=== PATIENT | female | born 1935 | race Two or more races ===

== ENCOUNTER 2016-07-15 00:01 | Outpatient (RCR) ==
[2015-08-15 14:04] VITALS: BMI 37.6
[2016-07-20 11:56] VITALS: BP 142/56
== END 2016-07-20 15:00 | disposition home or self-care (01) ==
LOC: CAR.REHAB 00:01
PROVIDERS: ATTEND Internal Medicine
DX: I25.10 Atherosclerotic heart disease of native coronary artery without angina pectoris (principal); Z95.5 Presence of coronary angioplasty implant and graft
CPT/HCPCS: 93798

== ENCOUNTER 2018-08-25 10:58 | Outpatient (CLI) | payer OTHER ==
[2015-08-15 14:04] VITALS: BMI 37.6
--- NOTE | 2018-08-25 13:41 | DI ---
EXAM: CHEST FRONTAL AND LATERAL VIEWS HISTORY: Chest pain. COMPARISON: None FINDINGS: Mildly prominent heart size. Moderate atherosclerosis. Sternotomy wires are present. No acute infiltrates are seen. No vascular congestion. There is no consolidation, visible pleural flu id or pneumothorax. Bones reveal no acute fracture. IMPRESSION: Atherosclerotic disease. Prominent heart size. No acute cardiopulmonary process.
== END 2018-08-25 10:59 | disposition home or self-care (01) ==
LOC: RAD 10:58
PROVIDERS: ATTEND Family Medicine
DX: R07.9 Chest pain, unspecified (principal)

== ENCOUNTER 2018-09-30 10:00 | Outpatient (RCR) ==
[2015-08-15 14:04] VITALS: BMI 37.6
--- NOTE | 2018-09-17 15:28 | RS.OPPTEV2 ---
Date of Note: 09/16/18 Visit #: 1 Number of visits approved by Insurance: NA Date of Evaluation: 09/16/18 Payer Source: MEDICARE Surgery Performed?: No Treatment Diagnosis: Bilateral hand pain, impaired sensation History of Condition/Mechanism of Injury:: Mrs. Fofana reports no injury. States her symptoms started approximately 3 months ago. Prior Level of Function.....Patient was independent with: ADL's, Self Care, Caregiving, Ambulation/Mobility, Community Integration/Access Functional Limitations: ADL's, Pushing, Pulling, Lifting, Carrying Current Subjective/complaints:: Patient reports mostly right hand symptoms. States symptoms in left hand are very mild. She had a Nerve Conduction test that showed Carpal Tunnel Syndrome in both wrists. Surgery was suggested. She reports that she is not going to have surgery. She has a basic wrist splint that she wears sometimes at night and some during the day. Decribes pain in the hand and sometimes up to the forearm. States she has a lot of pain in the left thumb. She denies neck or shoulder pain. She reports tingling into the entire hand. She feels that her right hand may be slightly swollen. Treatment Side (optional): Bilateral Medical History Medical History: Hypertension, Arthritis Surgical History Comments:: Heart surgery Hx Home Medications: Patient does not have medication list with her. Patient's Goals: Her goal is to get relief of symptoms in her hands. Pain Assessment - Pain Description Pain Location: right hand, thumb Pain Description: Radiating, Aching Current Pain Intensity: 2/10 Worst Pain Intensity: 5/10 Functional Outcome Measure UE Functional Index: 70 (70/80=12.5% impairment) - G Codes & Severity Modifier G Codes & Modifier: NA Source of G Code score: NA Observation - Observation Inspection: Bilateral hands demonstrate no significant swelling. Right hand does appear to be very slightly swollen compared to the left hand. No thenar or hypothenar eminance atrophy noted. Posture: Forward Head, Rounded Shoulders Handedness: Right - Left Wrist/Hand ROM Comments: Right active wrist extension 70 degrees, flexion 50 degrees. Left wrist extension 85 degrees, and flexion 65 degrees. Demonstrates ability to perform full opposition of the fingers, but reports the right hand and fingers feel much tighter. Bilateral elbow and shoulder AROM is WFL's without pain. - Left Wrist Strength Left Wrist Extension: 4+ Good + Left Wrist Flexion: 4+ Good + Left Forearm Pronation: 4+ Good + Left Forearm Supination: 4+ Good + Comments: Left elbow and shoulder 4+/5. - Right Wrist Strength Right Wrist Extension: 4 Good Right Wrist Flexion: 4 Good Right Forearm Pronation: 4+ Good + Right Forearm Supination: 4 Good Comments: Right elbow and shoulder 4 to 4+/5. - Sas Sql Developer Strength Left Sas Sql Developer Strength: 36 (lbs.) Right Sas Sql Developer Strength: 17 (lbs.) - Special Tests Tinel Test: Negative Left, Positive Right Palpation Comments:: Pt reports significant tenderness with palpation of first rib on the right. Reports no tenderness with palpation on the left first rib. Sensation - Sensation Comments: Reports impaired sensation in the right hand. She is able to detect light touch and deep pressure. With testing sensation, patient reports the index finger and thumb feel hypersensitive along the higuera aspect. Additional Comments: Additional Comments: Patient unable Phalen's test effectively due to limited right wrist flexion. Pincer Grasp: right 6 lbs, left 12 lbs. Interventions - Exercise/Activities/Manual Therapy Exercises/Activities: Mrs. Fofana was instructed in the Prayer stretch ( bilateral wrist extension) and single wrist extension stretch with the elbow extended. We discussed her diagnosis and and she was advised to wear the wrist splint as much as she could to allow for rest and healing. Also discussed the use of ice to decrease pain and elevating the right UE to help with any swelling. Total minutes of Exercise: X 12 mins Manual Therapy: NA HOME EXERCISE PROGRAM: Prayer stretch (wrist extension ) and single wrist extension w/ elbow extension. - Charges Timed Code Treatment Minutes: 12 mins Total Treatment Time: 42 mins Procedures billed for this date of service:: EVAL Medium EVALUATION COMPLEXITY LEVEL EVALUATION COMPLEXITY LEVEL: HISTORY: Medium (Hx heart surgery, Arthritis, HTN) , EXAM OF BODY SYSTEMS: Medium (Right UE AROM), CLINICAL PRESENTATION: Medium, CLINICAL DECISION MAKING: Medium Assessment Assessment: Mrs. Fofana presents to therapy with a diagnosis of Bilateral carpal tunnel syndrome. She reports and exhibits more issues with the right hand/wrist. She displays symptoms of tingling and pain, which she reports is in most the hand and fingers. She also demonstrated a "jump sign" when palpating the right first rib, which may be a source of some of her symptoms. We discussed going with the exercises and treatment to address the wrists as the source of her symptoms. But if her symptoms do not improve with a few weeks of therapy focused on CTS, then we may request to focus therapy on the first rib. She demonstrates potential to benefit from skilled therapy intervention to reduce her pain. Patient Education: Education of diagnosis, Body/Joint mechanics, Home Exercise Program, Home Safety, Activity Modification, Education of Plan of Care Rehab Potential: Good Short Term Goals Goal #1: Pt independent and compliant with HEP and recommendations. Goal to be met by: 10/01/18 Goal #2: Right Wrist extension improved to 80 degrees actively. Goal to be met by: 10/01/18 Goal #3: Pt to report reduction of hand symptoms to minimal w/ activity. Goal to be met by: 10/01/18 Goal #4: Right wrist strength 4+/5 throughout. Goal to be met by: 10/01/18 [place] Goals Goal #1: Pt knows HEP and to continue ex's to maintain functional level after D/ C. Goal to be met by: 10/22/18 Goal #2: Bilateral hand symptoms decreased to occassional. Goal to be met by: 10/22/18 Goal #3: Pt able to perform daily activities with minimal hand/wrist pain. Goal to be met by: 10/22/18 Plan - Treatment to be Provided Procedures: Therapeutic Exercises, Therapeutic Activity, Manual Therapy, Patient Education Modalities: Ultrasound/Phonophoresis, Class IV Laser, Cryotherapy - Treatment Plan Frequency: 2-3 X week Duration: 4 weeks Dates of Fire Extinguisher Installer Goals: 10/22/18 Expiration date of current Insurance Approval:: NA - Treatment Code (1) Carpal tunnel syndrome Code(s): G56.00 - CARPAL TUNNEL SYNDROME, UNSPECIFIED UPPER LIMB Qualifiers: Laterality: bilateral Qualified Code(s): G56.03 - Carpal tunnel syndrome, bilateral upper limbs
--- NOTE | 2018-09-22 11:01 | RS.OPPTDN ---
Subjective Date of Note: 09/22/18 Visit #: 2 Number of visits approved by Insurance: na Date of Evaluation: 09/16/18 Payer Source: MEDICARE Treatment Diagnosis: Bilateral hand pain, impaired sensation Current Subjective/complaints:: Patient reports doing her HEP and feels it is helping.We discussed for her to use a wrist support at her computer ,also. Pain Assessment - Pain Description Pain Location: R wrist /thumb Pain Description: Dull, Aching Current Pain Intensity: 5/10 Other Comments regarding Pain:: no pain after stretches today - Treatment Modality: Ultrasound Parameters/Method Applied: 10 mins. @ 1.5 w/cm2,cont. mode to R wrist /thumb Patient Position: Sitting - Heat/Cryotherapy Treatment: Cryotherapy (10 mins. after exercises) Interventions - Exercise/Activities/Manual Therapy Exercises/Activities: 20 mins. total of prayer stretch,then R wrist into extension with elbow extended.Instructed in thumb opposition to each digit, radial /ulnar deviation. Total minutes of Exercise: 20 Manual Therapy: NA Total minutes of Manual Therapy: 0 HOME EXERCISE PROGRAM: Prayer stretch (wrist extension ) and single wrist extension w/ elbow extension. - Charges Timed Code Treatment Minutes: 20 Total Treatment Time: 40 Procedures billed for this date of service:: US,ex ,cp Assessment: Gage reports relief today after US and stretches.She has good return demo of HEP,is attentive and motivated to improve. Patient Education: Education of diagnosis, Body/Joint mechanics, Home Exercise Program, Home Safety, Activity Modification, Education of Plan of Care Patient demonstrates compliance with HEP?: Yes Short Term Goals Goal #1: Pt independent and compliant with HEP and recommendations. Goal to be met by: 10/01/18 Progress towards Goal:: Progressing Goal #2: Right Wrist extension improved to 80 degrees actively. Goal to be met by: 10/01/18 Progress towards Goal:: Progressing Goal #3: Pt to report reduction of hand symptoms to minimal w/ activity. Goal to be met by: 10/01/18 Progress towards Goal:: Progressing Goal #4: Right wrist strength 4+/5 throughout. Goal to be met by: 10/01/18 Flexible Machining System Machinist Goals Goal #1: Pt knows HEP and to continue ex's to maintain functional level after D/ C. Goal to be met by: 10/22/18 Progress towards goal: Progressing Goal #2: Bilateral hand symptoms decreased to occassional. Goal to be met by: 10/22/18 Goal #3: Pt able to perform daily activities with minimal hand/wrist pain. Goal to be met by: 10/22/18 Plan Dates of Flexible Machining System Machinist Goals: 10/22/18 Expiration date of current Insurance Approval:: na PLAN: Cont. skilled PT to reduce /eliminate carpal symptoms,resulting in increased R retina subspecialist strength and minimal pain.
--- NOTE | 2018-09-26 10:57 | RS.OPPTDN ---
Subjective Date of Note: 09/26/18 Visit #: 3 Number of visits approved by Insurance: na Date of Evaluation: 09/16/18 Payer Source: MEDICARE Treatment Diagnosis: Bilateral hand pain, impaired sensation Current Subjective/complaints:: Patient reports soreness is more in the fingers today,but the wrist feels better. Pain Assessment - Pain Description Pain Location: R hand Pain Description: Dull, Aching Current Pain Intensity: not rated - Treatment Modality: Ultrasound Parameters/Method Applied: 10 mins. to R hand ,palm and dorsum , @ 1.5 w/cm2 cont. mode. Interventions - Exercise/Activities/Manual Therapy Exercises/Activities: 30 mins. total of prayer stretch,then R wrist into extension with elbow extended.thumb opposition to each digit,radial /ulnar deviation. Total minutes of Exercise: 30 Manual Therapy: NA Total minutes of Manual Therapy: 0 HOME EXERCISE PROGRAM: Prayer stretch (wrist extension ) and single wrist extension w/ elbow extension. - Charges Timed Code Treatment Minutes: 30 Total Treatment Time: 40 Procedures billed for this date of service:: US,ex 2 Assessment: Patient is able to do thumb opposition easier tooday after passive stretches,reports pain relief in the entire R hand after session today.She is very active ,motivated to improve ,compliant to recommendations of therapy staff. Patient Education: Education of diagnosis, Body/Joint mechanics, Home Exercise Program, Home Safety, Activity Modification, Education of Plan of Care Patient demonstrates compliance with HEP?: Yes Short Term Goals Goal #1: Pt independent and compliant with HEP and recommendations. Goal to be met by: 10/01/18 Progress towards Goal:: Met Goal #2: Right Wrist extension improved to 80 degrees actively. Goal to be met by: 10/01/18 Progress towards Goal:: Progressing Goal #3: Pt to report reduction of hand symptoms to minimal w/ activity. Goal to be met by: 10/01/18 Progress towards Goal:: Progressing Goal #4: Right wrist strength 4+/5 throughout. Goal to be met by: 10/01/18 [place] Goals Goal #1: Pt knows HEP and to continue ex's to maintain functional level after D/ C. Goal to be met by: 10/22/18 Progress towards goal: Progressing Goal #2: Bilateral hand symptoms decreased to occassional. Goal to be met by: 10/22/18 Goal #3: Pt able to perform daily activities with minimal hand/wrist pain. Goal to be met by: 10/22/18 Progress towards goal: Progressing Plan Dates of Fdc Goals: 10/22/18 Expiration date of current Insurance Approval:: na PLAN: Cont. PT to reduce /elimate R wrist/hand pain.
--- NOTE | 2018-09-30 10:58 | RS.OPPTDN ---
Subjective Date of Note: 09/30/18 Visit #: 4 Number of visits approved by Insurance: na Date of Evaluation: 09/16/18 Payer Source: MEDICARE Treatment Diagnosis: Bilateral hand pain, impaired sensation Current Subjective/complaints:: Patient pleased with her progress,has no pain or tingling in the R hand ,is doing her stretches. - Treatment Modality: Ultrasound Parameters/Method Applied: 10 mins. @ 1.5 w/cm2 to R hand /wrist area. Patient Position: Sitting Interventions - Exercise/Activities/Manual Therapy Exercises/Activities: 20 mins. total of prayer stretch,then R wrist into extension with elbow extended , thumb opposition to each digit,radial /ulnar deviation. Total minutes of Exercise: 20 Manual Therapy: NA Total minutes of Manual Therapy: 0 HOME EXERCISE PROGRAM: Prayer stretch (wrist extension ) and single wrist extension w/ elbow extension. - Charges Timed Code Treatment Minutes: 30 Total Treatment Time: 30 Procedures billed for this date of service:: US,ex Assessment: Progrssing very well ,no pain or tinglng in the R hand today.She is able to do thumb opposition to each finger today ,has functional process improvement manager without pain.We duscussed the POC ,plan to D/C at next visit if she is still pain free. Patient Education: Body/Joint mechanics, Home Exercise Program, Home Safety, Activity Modification, Education of Plan of Care Patient demonstrates compliance with HEP?: Yes Short Term Goals Goal #1: Pt independent and compliant with HEP and recommendations. Goal to be met by: 10/01/18 Progress towards Goal:: Met Goal #2: Right Wrist extension improved to 80 degrees actively. Goal to be met by: 10/01/18 Progress towards Goal:: Progressing Goal #3: Pt to report reduction of hand symptoms to minimal w/ activity. Goal to be met by: 10/01/18 Progress towards Goal:: Met Goal #4: Right wrist strength 4+/5 throughout. Goal to be met by: 10/01/18 Progress towards Goal:: Met Retirement Goals Goal #1: Pt knows HEP and to continue ex's to maintain functional level after D/ C. Goal to be met by: 10/22/18 Progress towards goal: Met Goal #2: Bilateral hand symptoms decreased to occassional. Goal to be met by: 10/22/18 Progress towards goal: Partially Met Comments: none today Goal #3: Pt able to perform daily activities with minimal hand/wrist pain. Goal to be met by: 10/22/18 Progress towards goal: Met Plan Dates of Classification Counselor Goals: 10/22/18 Expiration date of current Insurance Approval:: na PLAN: Initiate D/C plan due to good progress.
--- NOTE | 2018-10-03 07:59 | RS.CSNOTE ---
PT Case Note Date of Note: 10/03/18 Title of document: Patient status Note: Patient called clinic yesterday ,is doing well,requests to discharge PT do to good progress.Supervising PT notified. Number of visits approved by Insurance: na Expiration date of current Insurance Approval:: na
--- NOTE | 2018-10-08 15:49 | RS.OPPTDC ---
Date of Discharge: 10/08/18 Date of Evaluation: 09/16/18 Number of Visits: 4 Treatment Diagnosis: Bilateral hand pain, impaired sensation Current Complaints/Gains: Patient reports good progress with therapy. She requested D/C with therapy due to doing better. Denies tinling in hands with ADL's. Functional Outcome Measure - G Codes & Severity Modifier G Codes & Modifier: NA Source of G Code score: NA Interventions - Exercise/Activities/Manual Therapy Exercises/Activities: NA Manual Therapy: NA HOME EXERCISE PROGRAM: Prayer stretch (wrist extension ) and single wrist extension w/ elbow extension. - Charges Timed Code Treatment Minutes: NA Total Treatment Time: NA Procedures billed for this date of service:: NA Assessment Assessment: Ms. Fofana reported much improvement in symptoms. She was receptive to advice we gave her to help decrease her symptoms. Short Term Goals Goal #1: Pt independent and compliant with HEP and recommendations. Goal to be met by: 10/01/18 Progress towards Goal:: Met Goal #2: Right Wrist extension improved to 80 degrees actively. Goal to be met by: 10/01/18 Progress towards Goal:: Not Met Goal #3: Pt to report reduction of hand symptoms to minimal w/ activity. Goal to be met by: 10/01/18 Progress towards Goal:: Met Goal #4: Right wrist strength 4+/5 throughout. Goal to be met by: 10/01/18 Progress towards Goal:: Met Group Home Goals Goal #1: Pt knows HEP and to continue ex's to maintain functional level after D/ C. Goal to be met by: 10/22/18 Progress towards goal: Met Goal #2: Bilateral hand symptoms decreased to occassional. Goal to be met by: 10/22/18 Progress towards goal: Met Goal #3: Pt able to perform daily activities with minimal hand/wrist pain. Goal to be met by: 10/22/18 Progress towards goal: Met Plan Reason for Discharge:: Self-Discharge Comments: Patient has HEP to continue on her own.
== END 2018-10-12 23:59 ==
PROVIDERS: ATTEND Specialist
DX: G56.03 Carpal tunnel syndrome, bilateral upper limbs (principal)

== ENCOUNTER 2021-10-31 00:12 | Observation (INO) ==
[2021-10-31] MEDS ORDERED: ZOFRAN 4 MG/2 ML IVP STA (00:15)
[2021-10-31] MEDS ORDERED: SODIUM CHLORIDE 1,000 ML IV STA (00:15)
--- NOTE | 2021-10-31 00:16 | ED.PDOC ---
General ED Provider: Dr. FINA MARTINEZ Chief Complaint: Chest Pain Stated Complaint: Patient started having chest pain while she was eating a salad. The pain is located on the right mid chest with associated nausea and vomiting. Time Seen by Provider: 10/31/21 00:31 Primary Care Provider: ZAKIYA DASLIVA Nursing and Triage Documentation Reviewed and Agree: Yes Does patient meet sepsis criteria?: No System Inflammatory Response Syndrome: Temp 101F or Greater and Temp 96.8F or Lower Sepsis Protocol: For patient's 13 years and over: Temp is 96.8 and below OR 101 and greater Pulse >90 BPM Resp >20/minute Acutely Altered Mental Status Are patient's symptoms suggestive of a new infection, such as: -Pneumonia -Skin, Soft Tissue -Endocarditis -UTI -Bone, Joint Infection -Implantable Device -Acute Abdominal Infection -Wound Infection -Meningitis -Blood Stream Catheter Infection -Unknown Cardiovascular Complaint Exam Chest Pain Complaint/Exam Onset: Sudden Symptoms Are: Still present (but better ) Location: Reports Midsternal and Right anterior Pain Radiates: Reports Back Alleviating: Reports Rest and Nitro Associated Signs and Symptoms: Reports Diaphoresis, Nausea, Vomiting and Short of air Related Surgical History: Reports None AMI/ACS Risk Factors: Reports None TAD Risk Factors: Reports None Pulmonary Embolism Risk Factors: Reports None Prior Care for this Complaint: No Recent Stress Test: No Recent Echo/LV Function: No Subcutaneous Emphysema Present: No Diminshed Breath Sounds: No Reproducible Chest Wall Pain: No Bilateral Pulses Present: No Unequal Pulses Noted: No Chest Picture: 1. chest pain If Risk Factors for AMI/ACS Consider: EKG Differential Diagnoses: Acute IA and ACS Quality Indicators For Acute IA or Cardiac Chest Pain: EKG in 10min. Quality Indicator For Non-Traumatic Chest Pain/Syncope: EKG Performed Review of Systems Review Of Systems Constitutional: Reports No symptoms Eyes: Reports No symptoms Respiratory: Reports No symptoms Cardiac: Reports Chest pain GI: Reports Nausea and Vomiting : Reports No symptoms Musculoskeletal: Reports No symptoms Skin: Reports No symptoms Neurological: Reports Anxiety Endocrine: Reports No symptoms All Other Systems: Reviewed and Negative [facility] Medical History (Updated 10/31/21 @ 00:40 by FINA MARTINEZ MD) Acid reflux Allergies Arthritis Cancer Heart disease Hypertension Family History (Updated 05/14/19 @ 09:42 by RUTH BAL) FATHER No problems noted. Mother Cancer Surgical History (Updated 01/25/20 @ 09:02 by [facility]) History of angioplasty History of cholecystectomy History of heart surgery Tubal ligation status Physical Exam Physical Exam Appearance: Reports Well-appearing Ill-appearing: Severe Pain Distress: Severe Eyes: Reports AMBER, EOMI and Conjunctiva clear ENT: Reports Nose normal Neck: Not Examined Respiratory: Reports Airway patent, Breath sounds clear and Breath sounds equal Cardiovascular: Reports RRR, Pulses normal and No rub GI/: Reports Soft, Nontender and No masses Musculoskeletal: Reports Normal strength Skin: Reports Warm Neurological: Reports Sensation intact Psychiatric: Reports Anxious Interpretation Radiology Interpretation Radiology Interpretation By: Radiologist Radiology Results: Negative Exam Interpreted: Portable CXR Studio Producer Rate: Normal Rhythm: Sinus Ectopy: None EKG Interpretation Time of EKG #1: 00:01 Rate: Normal Rhythm: Sinus Ectopy: None [place]: NL ST Segment: Normal Interpretation: Anterior Infarct age undetermined Re-Evaluation Re-Evaluation Time of Re-Evaluation: 07:52 Status: Improved Vital Signs Stable: Yes Physician Notification Case Discussed Physician Notified: Dr Chawla Time of Notification: 02:50 (accepted for Transfer. ) Comments: Awaited Transportation in the AM and Discuss with family. Physician Notified: Dr Dasilva Time of Notification: 08:30 (Transer to Dr Chawla.) Comments: Patient agreeable to Transfer to Dr. Chawla in [place] Endorsed To/Discussed With: Dr Shepard. Time of Discussion: 07:53 ([facility] does have a bed will admit here until we have a bed. ) Critical Care Note Critical Care Note Total Critical Care Time (mins): 30 Course Course Hematology/Chemistry: 10/31/21 00:15 10/31/21 00:15 Orders, Labs, Meds: Lab Review 10/31/21 10/31/21 10/31/21 00:15 00:15 00:15 WBC 16.10 H RBC 4.03 L Hgb 12.4 Hct 37.9 MCV 94.0 MCH 30.8 MCHC 32.7 RDW Coeff of Peg 13.3 Plt Count 225 Immature Gran % (Auto) 0.4 Neut % (Auto) 91.3 H Lymph % (Auto) 3.8 L [place] % (Auto) 3.6 Eos % (Auto) 0.7 Baso % (Auto) 0.2 Neut # (Auto) 14.7 H Lymph # (Auto) 0.6 [place] # (Auto) 0.6 Eos # (Auto) 0.1 Baso # (Auto) 0.0 Immature Gran # (Auto) 0.1 Sodium 141.0 Potassium 3.25 L Chloride 106.2 Carbon Dioxide 28.5 Anion Gap 9.55 BUN 25.1 H Creatinine 1.00 Estimated GFR (MDRD) 53.00 BUN/Creatinine Ratio 25.10 Glucose 179.5 H Calcium 8.91 Total Bilirubin 0.99 AST 78.8 H ALT 42.8 H Alkaline Phosphatase 131.1 Total Creatine Kinase 90.6 Troponin I < 0.012 Total Protein 7.21 Albumin 3.95 Globulin 3.26 Albumin/Globulin Ratio 1.21 Adenovirus (PCR) Not detected B. pertussis DNA (PCR) Not detected B.parapertussis DNA PCR Not detected C. pneumoniae DNA (PCR) Not detected Coronavirus OC43 (PCR) Not detected Coronavirus HKU1 (PCR) Not detected Coronavirus 229E (PCR) Not detected Coronavirus NL63 (PCR) Not detected Human Metapneumovir PCR Not detected Influenza Type A (PCR) Not detected Influenza B (RT-PCR) Not detected M. pneumoniae (PCR) Not detected Parainfluenza 1 (PCR) Not detected Parainfluenza 2 (PCR) Not detected Parainfluenza 3 (PCR) Not detected Parainfluenza 4 (PCR) Not detected RSV (PCR) Not detected Entero/Rhino (PCR) Not detected SARS-CoV-2 (PCR) Not detected 10/31/21 05:00 WBC RBC Hgb Hct MCV MCH MCHC RDW Coeff of Peg Plt Count Immature Gran % (Auto) Neut % (Auto) Lymph % (Auto) [place] % (Auto) Eos % (Auto) Baso % (Auto) Neut # (Auto) Lymph # (Auto) [place] # (Auto) Eos # (Auto) Baso # (Auto) Immature Gran # (Auto) Sodium Potassium Chloride Carbon Dioxide Anion Gap BUN Creatinine Estimated GFR (MDRD) BUN/Creatinine Ratio Glucose Calcium Total Bilirubin AST ALT Alkaline Phosphatase Total Creatine Kinase Troponin I 0.100 Total Protein Albumin Globulin Albumin/Globulin Ratio Adenovirus (PCR) B. pertussis DNA (PCR) B.parapertussis DNA PCR C. pneumoniae DNA (PCR) Coronavirus OC43 (PCR) Coronavirus HKU1 (PCR) Coronavirus 229E (PCR) Coronavirus NL63 (PCR) Human Metapneumovir PCR Influenza Type A (PCR) Influenza B (RT-PCR) M. pneumoniae (PCR) Parainfluenza 1 (PCR) Parainfluenza 2 (PCR) Parainfluenza 3 (PCR) Parainfluenza 4 (PCR) RSV (PCR) Entero/Rhino (PCR) SARS-CoV-2 (PCR) Orders Category Date Time Status EKG-(ED ONLY) Stat CARDIO 10/31/21 00:14 Completed CBC W/ AUTO DIFF Stat LAB 10/31/21 00:15 Completed COMPREHENSIVE METABOLIC PANEL Stat LAB 10/31/21 00:15 Completed CREATINE KINASE Stat LAB 10/31/21 00:15 Completed RESPIRATORY PANEL 2.1 (PCR) Stat LAB 10/31/21 00:15 Completed TROPONIN I Stat LAB 10/31/21 00:15 Completed TROPONIN I Stat LAB 10/31/21 05:00 Completed Ondansetron HCl/Pf [Zofran 4 mg/2 ml] MEDS 10/31/21 00:15 Discontinued 4 mg IVP ONCE STA Pantoprazole Sodium [Protonix IV] MEDS 10/31/21 00:43 Discontinued 40 mg IVP ONCE ONE Sodium Chloride 0.9% [Sodium Chloride] 1,000 ml MEDS 10/31/21 00:15 Active IV 100 mls/hr CHEST, 1V AP ONLY Stat RADS 10/31/21 00:14 Completed Medications Generic Name Dose Route Start Last Admin Trade Name Freq PRN Reason Stop Dose Admin Sodium Chloride 1,000 mls @ 100 mls/hr 10/31/21 00:15 10/31/21 00:26 Sodium Chloride IV 10/31/21 10:14 100 mls/hr .Q10H STA Administration Discontinued Medications Generic Name Dose Route Start Last Admin Trade Name Freq PRN Reason Stop Dose Admin Ondansetron HCl 4 mg 10/31/21 00:15 10/31/21 00:28 Ondansetron Hcl/Pf 4 Mg/2 Ml Sdv IVP 10/31/21 00:16 4 mg ONCE STA Administration Pantoprazole Sodium 40 mg 10/31/21 00:43 10/31/21 00:48 Pantoprazole Sodium 40 Mg Vial IVP 10/31/21 00:44 40 mg ONCE ONE Administration Vital Signs: Temp Pulse Resp BP Pulse Ox 10/31/21 00:14 97.0 F L 60 16 156/84 H 99 BRAYAN Risk Score Age >/= 65: Yes >/= 3 CAD Risk Factors: Yes Known CAD (Stenosis >/= 50%): Yes ASA Use in Past 7 Days: Yes Severe Angina (>/= 2 episodes in 24 hours): Yes EKG ST Changes >/= 0.5mm: No Postive Cardiac Marker: No BRAYAN Total Score: 5 BRAYAN Risk Score: Risk Score Odds of by 30D 0 0.1 (0.1-0.2) 1 0.3 (0.2-0.3) 2 0.4 (0.3-0.5) 3 0.7 (0.6-0.9) 4 1.2 (1.0-1.5) 5 2.2 (1.9-2.6) 6 3.0 (2.5-3.6) 7 4.8 (3.8-6.1) Discharge Plan Discharge Patient Disposition: PLACED OBSERVATION Discharge Problem: Chest pain Prescriptions: No Action No Reported Medications 0 Qty: 0 0RF ED Provider: FINA MARTINEZ Condition: Good Physician Progress Note: []
[2021-10-31 00:25] LABS: BASOPHILS % (AUTO) 0.2 % (0.0-3.0); EOSINOPHILS # (AUTO) 0.1 K/ul (0.0-0.7); EOSINOPHILS % (AUTO) 0.7 % (0.0-7.0); HEMATOCRIT 37.9 % (37.0-47.0); HEMOGLOBIN 12.4 g/dl (12.0-16.0); IMMATURE GRANULOCYTE # (AUTO) 0.1 (0.0-1.0); IMMATURE GRANULOCYTE % (AUTO) 0.4 % (0.0-5.0); LYMPHOCYTES # (AUTO) 0.6 K/uL (0.60-3.4); LYMPHOCYTES % (AUTO) 3.8 (10.0-50.0); MEAN CORPUSCULAR HEMOGLOBIN 30.8 pg (27.0-31.0); MEAN CORPUSCULAR HGB CONC 32.7 (31.8-35.4); MONOCYTES # (AUTO) 0.6 K/uL (0.4-2.0); MONOCYTES % (AUTO) 3.6 (0-10); NEUTROPHILS # (AUTO) 14.7 K/ul (2.0-6.9); NEUTROPHILS % (AUTO) 91.3 % (42.2-75.2); PLATELET COUNT 225 10^3/uL (140-440); RDW COEFFICIENT OF VARIATION 13.3 % (11.6-14.8); RED BLOOD COUNT 4.03 10^6/ul (4.20-5.40)
[2021-10-31] MEDS ORDERED: PROTONIX IV IVP ONE ×2 (00:43→08:02)
--- NOTE | 2021-10-31 00:43 | DI ---
Exam: Chest one-view History: Chest pain FINDINGS: Normal cardiomediastinal contours. Normal pulmonary vasculature. No infiltrative opaciti es. Prior mediastinotomy. No acute chest wall abnormality. Impression: No acute cardiopulmonary disease
[2021-10-31 00:55] LABS: ALANINE AMINOTRANSFERASE 42.8 U/L (0-35); ALBUMIN 3.95 g/dL (3.5-5.0); ALKALINE PHOSPHATASE 131.1 U/L (53-141); ASPARTATE AMINO TRANSFERASE 78.8 U/L (14-36); BILIRUBIN,TOTAL 0.99 mg/dL (0.2-1.3); BLOOD UREA NITROGEN 25.1 mg/dL (7-17); CALCIUM 8.91 mg/dL (8.4-10.2); CARBON DIOXIDE 28.5 mmol/L (22-30.0); CHLORIDE 106.2 mmol/L (98-107); CREATINE KINASE 90.6 U/L (30-135); GLUCOSE 179.5 mg/dL (74-106); POTASSIUM 3.25 mmol/L (3.5-5.1); TOTAL PROTEIN 7.21 g/dL (6.3-8.2)
[2021-10-31 01:25] LABS: TROPONIN I < 0.012 ng/ml (0.0000-0.120)
[2021-10-31 01:32] LABS: ADENOVIRUS (PCR) NOT DETECTED (NOT DETECT); BORDETELLA PARAPERTUSSIS (PCR) NOT DETECTED (NOT DETECT); BORDETELLA PERTUSSIS (PCR) NOT DETECTED (NOT DETECT); CHLAMYDIA PNEUMONIAE (PCR) NOT DETECTED (NOT DETECT); CORONAVIRUS 229E (PCR) NOT DETECTED (NOT DETECT); CORONAVIRUS HKU1 (PCR) NOT DETECTED (NOT DETECT); CORONAVIRUS NL63 (PCR) NOT DETECTED (NOT DETECT); CORONAVIRUS OC43 (PCR) NOT DETECTED (NOT DETECT); HUMAN METAPNEUMOVIRUS (PCR) NOT DETECTED (NOT DETECT); HUMAN RHINOVIRUS/ENTEROV (PCR) NOT DETECTED (NOT DETECT); INFLUENZA B (PCR) NOT DETECTED (NOT DETECT); MYCOPLASMA PNEUMONIAE (PCR) NOT DETECTED (NOT DETECT); PARAINFLUENZA VIRUS 1 (PCR) NOT DETECTED (NOT DETECT); PARAINFLUENZA VIRUS 2 (PCR) NOT DETECTED (NOT DETECT); PARAINFLUENZA VIRUS 3 (PCR) NOT DETECTED (NOT DETECT); PARAINFLUENZA VIRUS 4 (PCR) NOT DETECTED (NOT DETECT); RESPIRATORY SYNCYTIAL V (PCR) NOT DETECTED (NOT DETECT); SARS_COV_2 (PCR) NOT DETECTED (NOT DETECT)
[2021-10-31] MEDS ORDERED: ZOFRAN 4 MG/2 ML IVP PRN (07:57)
[2021-10-31] MEDS ORDERED: ASPIRIN CHEWABLE PO STA (07:57)
[2021-10-31] MEDS ORDERED: ASPIRIN EC PO SCH (08:30)
[2021-10-31] MEDS ORDERED: LOVENOX SUBCUT SCH (09:00)
--- NOTE | 2021-10-31 09:33 | US ---
EXAM: Right upper quadrant ultrasound HISTORY: Right-sided pain, nausea TECHNIQUE: Dai scale and color Doppler imaging of the right upper quadrant of the abdomen was perfo rmed. FINDINGS: The liver demonstrates normal parenchymal echotexture. There is no intrahepatic biliary d ilatation. No focal lesions are seen within the liver. The gallbladder was not seen on this examina tion. Normal antegrade blood flow was seen in the portal vein. The right kidney measures 10.3 cm in length. There is no hydronephrosis. The renal parenchymal echotexture appears normal. There is a small cyst seen within the superior to mid pole of the right kidney measuring 12 mm maximum. There i s a more complex cyst seen arising from the inferior pole of the right kidney measuring up to 2.3 cm maximum. There is a questionable internal soft tissue nodule. The common bile duct is measuring 4.6 mm diameter. The pancreas was not well seen. The inferior vena cava was not well seen on this exam ination. IMPRESSION: Overall limited evaluation and the gallbladder, pancreas, inferior vena cava were not we ll seen. Nuclear medicine HIDA scan can be obtained for further evaluation if there is a need for ev aluation of the gallbladder. The common bile duct is normal and measures 4.6 mm diameter. There is a complex cyst seen within the inferior pole of the right kidney measuring up to 2.3 cm maxi mum. A 6-month follow-up renal ultrasound should be obtained for further evaluation.
[2021-10-31 13:11] VITALS: BMI 30.9
[2021-10-31 14:15] LABS: CREATINE KINASE 74.8 U/L (30-135)
[2021-10-31 14:54] LABS: TROPONIN I 0.72 ng/ml (0.0000-0.120)
[2021-10-31] MEDS ORDERED: POTASSIUM CHL 10% ORAL SOL PO ONE (15:52)
[2021-10-31 16:03] VITALS: BP 152/72; TEMP 97.6
[2021-10-31] MEDS ORDERED: ATIVAN IVP ONE (16:13)
--- NOTE | 2021-10-31 17:35 | DS ---
PRINCIPAL DIAGNOSIS: 1.NSTEMI, hypertension, history of coronary artery disease DISCUSSION: This is a 86 year old lady with a history of coronary artery disease, presented to emergency room with nausea, vomiting, and chest pain after eating a meal. She was given a nitroglycerin by family with relief of symptoms. She presented to emergency department with EKG without acute findings, troponins are negative. Admitted under Dr. Ross's services for further observation. After observation, her troponin was elevated to 0.7, at this point patient is being transferred to [facility] under the care of Hospitalist Dr. Callaway. PAST MEDICAL HISTORY: MEDICATIONS: [tramadol 50mg q8h, protonix 40mg daily, nitroglycerin sublingual 400 mcg/spray 1 spray PRN, cozaar 100mg daily, lorazepam 1mg TID, lexapro 10 mg daily, clonodine 0.1 qhs, atrovastatin 40mg daily, aspirin 81 mg daily, PAST MEDICAL HISTORY: [DJD, CAD, HTN, hyperlipidemia] ALLERGIES: [Bacitracin, neomycin, penicillins, polymyxin B] PAST SURGICAL HISTORY: [Angioplasty, cholecystectomy] SOCIAL HISTORY: [, infrequent alcohol intake, no tobacco use] FAMILY HISTORY: [cancer- mother]Reviewed and thought not to be pertinent to discussion. REVIEW OF SYSTEMS: No headaches, visual changes, tinnitus, chest pain, shortness of breath, hemoptysis, abdominal pain, blood in the stool, urinary symptoms or seizures. PHYSICAL EXAMINATION: VITAL SIGNS: Temperature [96.0], pulse [], respirations [16] and blood pressure [112/88]. HEENT: Pupils are round. NECK: Supple. CHEST: Clear. CARDIOVASCULAR: Regular rate and rhythm. ABDOMEN: Soft, nontender. EXTREMITIES: Distal extremities without cyanosis or edema. CLINICAL COURSE: [Patient being transfered to [facility] under the care of hospitalist, Nilton Bravo.] ] [facility]
== END 2021-10-31 17:35 | disposition short-term general hospital (02) ==
LOC: ED 00:12 → MEDSURG A 00:12
PROVIDERS: ADMIT Family Medicine; ATTEND Family Medicine
DX: I10 Essential (primary) hypertension; Z51.81 Encounter for therapeutic drug level monitoring; Z79.899 Other long term (current) drug therapy; I21.4 Non-ST elevation (NSTEMI) myocardial infarction; Z20.822 Contact with and (suspected) exposure to COVID-19; I25.10 Atherosclerotic heart disease of native coronary artery without angina pectoris

== ENCOUNTER 2022-10-30 10:16 | Observation (INO) ==
[2022-10-30] MEDS ORDERED: ZOFRAN 4 MG/2 ML IVP STA ×2 (10:52→15:21)
[2022-10-30 11:09] LABS: BASOPHILS % (AUTO) 0.2 % (0.0-3.0); EOSINOPHILS # (AUTO) 0.1 K/ul (0.0-0.7); EOSINOPHILS % (AUTO) 0.7 % (0.0-7.0); HEMATOCRIT 34.6 % (37.0-47.0); HEMOGLOBIN 11.3 g/dl (12.0-16.0); IMMATURE GRANULOCYTE % (AUTO) 0.3 % (0.0-5.0); LYMPHOCYTES # (AUTO) 0.3 K/uL (0.60-3.4); LYMPHOCYTES % (AUTO) 3.3 (10.0-50.0); MEAN CORPUSCULAR HEMOGLOBIN 30.9 pg (27.0-31.0); MEAN CORPUSCULAR HGB CONC 32.7 (31.8-35.4); MEAN CORPUSCULAR VOLUME 94.5 fl (81.0-99.0); MONOCYTES # (AUTO) 0.5 K/uL (0.4-2.0); MONOCYTES % (AUTO) 5.4 (0-10); NEUTROPHILS # (AUTO) 8.7 K/ul (2.0-6.9); NEUTROPHILS % (AUTO) 90.1 % (42.2-75.2); PLATELET COUNT 196 10^3/uL (140-440); RDW COEFFICIENT OF VARIATION 14.5 % (11.6-14.8); RED BLOOD COUNT 3.66 10^6/ul (4.20-5.40); WHITE BLOOD COUNT 9.67 K/ul (4.6-10.2)
--- NOTE | 2022-10-30 11:23 | DI ---
EXAM: CHEST ONE-VIEW HISTORY: Chest pain COMPARISON: AP chest from 10/31/2021 FINDINGS: The heart size is normal. Marginal sutures are in place. The pulmonary vasculature is no rmal. No consolidating infiltrates are detected. No pneumothoraces or pleural effusions. IMPRESSION: 1. No acute cardiopulmonary disease. 2. Prominent heart size and prior sternotomy. .
[2022-10-30 11:27] LABS: ALANINE AMINOTRANSFERASE 100.5 U/L (0-35); ALBUMIN 3.75 g/dL (3.5-5.0); ALKALINE PHOSPHATASE 179.3 U/L (53-141); AMYLASE 90.5 U/L (30-110); ASPARTATE AMINO TRANSFERASE 240.1 U/L (14-36); BILIRUBIN,TOTAL 0.86 mg/dL (0.2-1.3); BLOOD UREA NITROGEN 19.5 mg/dL (7-17); CALCIUM 8.56 mg/dL (8.4-10.2); CARBON DIOXIDE 32.3 mmol/L (22-30.0); CHLORIDE 101.7 mmol/L (98-107); CREATININE 1.01 mg/dL (0.60-1.30); GLUCOSE 134.7 mg/dL (74-106); LIPASE 320.9 U/L (23-300); POTASSIUM 3.29 mmol/L (3.5-5.1); SODIUM 139.5 mmol/L (134.5-145); TOTAL PROTEIN 6.87 g/dL (6.3-8.2)
--- NOTE | 2022-10-30 11:31 | ED.PDOC ---
General ED Provider: Dr. FINA MARTINEZ Chief Complaint: Nausea/Vomiting Stated Complaint: Comes to the ER with diarrhea for few days then Nausea and vomiting this morning. states she ate some sandwiches this morning. After vomiting the she had some mild right upper chest pain now done. Time Seen by Provider: 10/30/22 10:42 Information Source: Patient Primary Care Provider: ZAKIYA DASILVA Nursing and Triage Documentation Reviewed and Agree: Yes Does patient meet sepsis criteria?: No System Inflammatory Response Syndrome: Not Applicable Sepsis Protocol: For patient's 13 years and over: Temp is 96.8 and below OR 101 and greater Pulse >90 BPM Resp >20/minute Acutely Altered Mental Status Are patient's symptoms suggestive of a new infection, such as: -Pneumonia -Skin, Soft Tissue -Endocarditis -UTI -Bone, Joint Infection -Implantable Device -Acute Abdominal Infection -Wound Infection -Meningitis -Blood Stream Catheter Infection -Unknown GI Complaint Exam Vomiting/Diarrhea Complaint/Exam Onset/Duration: today Symptoms Are: Still present Episodes of Vomiting over last 24 Hours: 20 Episodes of Diarrhea Over Last 24 Hours: 5 Initial Severity: Severe Current Severity: Moderate Character of Vomiting: Reports Non-bilious Character of Diarrhea: Reports Watery Aggravating: Reports Food Alleviating: Reports None Associated Signs and Symptoms: Reports Abdominal pain and Cramping Related Surgical History: Reports Cholecystectomy Abdominal Findings: Absent Abdominal distention or Rebound tenderness Differential Diagnoses: Bowel Obstruction, Cholecystitis and Gastritis Review of Systems Review Of Systems Constitutional: Reports No symptoms Cardiac: Reports Chest pain GI: Reports Diarrhea, Nausea and Poor appetite; Denies Abdominal pain or Constipated Musculoskeletal: Denies Back pain Neurological: Reports Anxiety All Other Systems: Reviewed and Negative [facility] Medical History Family History FATHER No problems noted. Mother Cancer Social History Alcohol intake: current Alcohol intake frequency: a few times a month Surgical History Female Reproductive History Menstrual Hx Hysterectomy: No Hx Tubal Ligation: No Physical Exam Physical Exam Appearance: Reports Ill-appearing Ill-appearing: Mild Pain Distress: Mild Eyes: Reports AMBER, EOMI and Conjunctiva clear ENT: Reports Nose normal Neck: Supple Respiratory: Reports Airway patent and Breath sounds clear Cardiovascular: Reports RRR, Pulses normal and No rub GI/: Reports Soft, Nontender and Bowel sounds hyperactive Musculoskeletal: Reports Normal strength, ROM intact and No edema Skin: Reports Warm, Dry and Normal color Neurological: Reports Motor intact, Alert and Oriented Psychiatric: Reports Anxious Interpretation Radiology Interpretation Radiology Interpretation By: Radiologist Radiology Results: Positive (IMPRESSION: Some edema in the mesentery with prominent lymph node suspicious for mesenteric adenitis. 2. Diverticulosis. 3. Vascular calcifications present in the abdominal aorta and iliac arteries) Exam Interpreted: CT Scan EKG Interpretation Time of EKG #1: 10:38 Rate: Normal Rhythm: Sinus Ectopy: None [place]: NL ST Segment: Normal Interpretation: Possible Anterioseptal infarct age undetermined. Critical Care Note Critical Care Note Total Critical Care Time (mins): 0 Course Course 10/31/22 04:44 10/31/22 04:44 Orders, Labs, Meds: Lab Review 10/30/22 10/30/22 10/30/22 11:04 14:22 15:34 WBC 9.67 RBC 3.66 L Hgb 11.3 L Hct 34.6 L MCV 94.5 MCH 30.9 MCHC 32.7 RDW Coeff of Peg 14.5 Plt Count 196 Immature Gran % (Auto) 0.3 Neut % (Auto) 90.1 H Lymph % (Auto) 3.3 L [place] % (Auto) 5.4 Eos % (Auto) 0.7 Baso % (Auto) 0.2 Neut # (Auto) 8.7 H Lymph # (Auto) 0.3 L [place] # (Auto) 0.5 Eos # (Auto) 0.1 Baso # (Auto) 0.0 Immature Gran # (Auto) 0.0 Sodium 139.5 Potassium 3.29 L Chloride 101.7 Carbon Dioxide 32.3 H Anion Gap 8.79 BUN 19.5 H Creatinine 1.01 Estimated GFR (MDRD) 52.00 BUN/Creatinine Ratio 19.30 Glucose 134.7 H Calcium 8.56 Total Bilirubin 0.86 GGT 76 H AST 240.1 H ALT 100.5 H Alkaline Phosphatase 179.3 H Total Creatine Kinase 61.0 Troponin I < 0.012 0.016 Total Protein 6.87 Albumin 3.75 Globulin 3.12 Albumin/Globulin Ratio 1.20 Amylase 90.5 Lipase 320.9 H SARS CoV-2 RNA Rapid JERAD Negative Orders Category Date Time Status PLACE PATIENT OBSERVATION .TO MEDSURG (MONITORED BED ADMISSION 10/30/22 16:51 Active ) EKG-(ED ONLY) Stat CARDIO 10/30/22 10:51 Completed INTAKE & OUTPUT Q8HR CARE 10/30/22 16:52 Active TELEMETRY MONITORING TELE CARE 10/30/22 16:52 Active VITAL SIGNS Q4HR CARE 10/30/22 16:53 Active CARDIAC DIET DIETARY 10/30/22 Breakfast Ordered AMYLASE Stat LAB 10/30/22 11:04 Completed CBC W/ AUTO DIFF DAILY@0600 LAB 10/31/22 04:44 Completed CBC W/ AUTO DIFF DAILY@0600 LAB 11/01/22 06:00 Ordered CBC W/ AUTO DIFF Stat LAB 10/30/22 11:04 Completed COMPREHENSIVE METABOLIC PANEL DAILY@0600 LAB 10/31/22 04:44 Completed COMPREHENSIVE METABOLIC PANEL DAILY@0600 LAB 11/01/22 06:00 Ordered COMPREHENSIVE METABOLIC PANEL Stat LAB 10/30/22 11:04 Completed CREATINE KINASE Stat LAB 10/30/22 11:04 Completed GGT [GAMMA GLUTAMYL TRANSFERASE] Stat LAB 10/30/22 11:04 Completed LIPASE Stat LAB 10/30/22 11:04 Completed SARS COV-2 RNA RAPID JERAD Stat LAB 10/30/22 15:34 Completed TROPONIN I Stat LAB 10/30/22 11:04 Completed TROPONIN I Stat LAB 10/30/22 14:22 Completed Acetaminophen [Tylenol] MEDS 10/30/22 16:51 Active 650 mg PO Q4H PRN Enoxaparin Sodium [Lovenox] MEDS 10/31/22 09:00 Active 40 mg SUBCUT DAILY Ondansetron HCl/Pf [Zofran 4 mg/2 ml] MEDS 10/30/22 10:52 Discontinued 4 mg IVP ONCE STA Ondansetron HCl/Pf [Zofran 4 mg/2 ml] MEDS 10/30/22 15:21 Discontinued 4 mg IVP ONCE STA Ondansetron HCl/Pf [Zofran 4 mg/2 ml] MEDS 10/30/22 16:51 Active 4 mg IVP Q6H PRN Potassium Chloride in 0.9%NaCl [Sodium Chloride 0.9%- MEDS 10/30/22 17:00 Active KCl 20 Meq] 1,000 ml IV 100 mls/hr Sodium Chloride 0.9% [Sodium Chloride] 1,000 ml MEDS 10/30/22 12:44 Discontinued IV BOLUS RESUSCITATION STATUS Routine OTHERS 10/30/22 16:51 Ordered CHEST, 1V AP ONLY Stat RADS 10/30/22 10:[address] ABDOMEN/PELVIS WO CONTRAST Stat RADS 10/30/22 12:07 Completed Medications Generic Name Dose Route Start Last Admin Trade Name Freq PRN Reason Stop Dose Admin Acetaminophen 650 mg 10/30/22 16:51 Acetaminophen 325 Mg Tablet PO Q4H PRN Fever and Mild Pain Enoxaparin Sodium 40 mg 10/31/22 09:00 Enoxaparin Sodium 40 Mg/0.4 Ml Syr SUBCUT DAILY RADHA Potassium Chloride/Sodium Chloride 1,000 mls @ 100 mls/hr 10/30/22 17:00 10/31/22 03:22 Sodium Chloride 0.9%-Kcl 20 Meq IV 100 mls/hr .Q10H RADHA Administration Ondansetron HCl 4 mg 10/30/22 16:51 Ondansetron Hcl/Pf 4 Mg/2 Ml Sdv IVP Q6H PRN Nausea / Vomiting Discontinued Medications Generic Name Dose Route Start Last Admin Trade Name Freq PRN Reason Stop Dose Admin Sodium Chloride 1,000 mls @ 1,000 mls/hr 10/30/22 12:44 10/30/22 13:15 Sodium Chloride IV 10/30/22 13:43 1,000 mls/hr BOLUS STA Administration Ondansetron HCl 4 mg 10/30/22 10:52 10/30/22 10:57 Ondansetron Hcl/Pf 4 Mg/2 Ml Sdv IVP 10/30/22 10:53 4 mg ONCE STA Administration Ondansetron HCl 4 mg 10/30/22 15:21 10/30/22 15:30 Ondansetron Hcl/Pf 4 Mg/2 Ml Sdv IVP 10/30/22 15:22 4 mg ONCE STA Administration Vital Signs: Temp Pulse Resp BP Pulse Ox 10/30/22 10:29 98.0 F 80 18 150/75 H 94 L Discharge Plan Discharge Patient Disposition: PLACED OBSERVATION Discharge Problem: Vomiting, Nausea, Elevated liver enzymes Did you review [place] [employer] for ALL controlled substances?: Not Applicable ED Provider: ROTICH,FINA Condition: Fair Physician Progress Note: []
[2022-10-30 11:40] LABS: TROPONIN I < 0.012 ng/ml (0.0000-0.120)
[2022-10-30] MEDS ORDERED: SODIUM CHLORIDE 1,000 ML IV STA (12:44)
--- NOTE | 2022-10-30 12:46 | CT ---
EXAM: CT ABDOMEN PELVIS WITHOUT CONTRAST HISTORY: Elevated liver enzymes COMPARISON: None. TECHNIQUE: Serial axial images of the abdomen pelvis were performed from the lung bases through the inferior pelvis without contrast. These were viewed in multiple planes. FINDINGS: Abdomen. Images of the lower thorax show no pulmonary infiltrate. Liver: Scattered granulomatous calcifications are present in the liver. Gallbladder: Surgical clips are present previous cholecystectomy. Pancreas: Normal. Spleen: Granulomatous calcifications are noted in the spleen. Adrenal glands: Normal. Kidneys: A 3 cm right renal cyst is present. There is no evidence of nephrolithiasis. Ureters: Ureters are unobstructed. Aorta: Vascular calcifications present in the abdominal aorta and iliac arteries. Retroperitoneum: There is no retroperitoneal adenopathy. Bowel: There is no bowel wall thickening or evidence of obstruction. The appendix is identified and is unremarkable. Diverticulosis is present in the distal descending and sigmoid colon. The mesenteric lymph nodes are present in the mesenteric suspicious for mesenteric adenitis. The uterus is visualized. Skeletal system: There is no acute osseous abnormality. Bladder: The bladder is unremarkable. IMPRESSION: Some edema in the mesentery with prominent lymph node suspicious for mesenteric adenitis . 2. Diverticulosis. 3. Vascular calcifications present in the abdominal aorta and iliac arteries. All CT scans are performed using dose optimization techniques as appropriate to the performed exam an d include at least one of the following: Automated exposure control, adjustment of the mA and/or kV according t o size, and the use of iterative reconstruction technique.
[2022-10-30 16:35] LABS: SARS COV-2 RNA RAPID NAAT NEGATIVE (NEGATIVE)
[2022-10-30] MEDS ORDERED: TYLENOL PO PRN (16:51)
[2022-10-30] MEDS ORDERED: ZOFRAN 4 MG/2 ML IVP PRN (16:51)
[2022-10-30] MEDS: SODIUM CHLORIDE 0.9%-KCL 20 MEQ 1,000 ML IV SCH (18:09)
[2022-10-30 18:37] VITALS: BMI 31.2
[2022-10-31] MEDS: SODIUM CHLORIDE 0.9%-KCL 20 MEQ 1,000 ML IV SCH (03:22)
[2022-10-31 05:13] LABS: BASOPHILS % (AUTO) 0.4 % (0.0-3.0); EOSINOPHILS # (AUTO) 0.2 K/ul (0.0-0.7); EOSINOPHILS % (AUTO) 2.9 % (0.0-7.0); HEMATOCRIT 31.3 % (37.0-47.0); HEMOGLOBIN 9.9 g/dl (12.0-16.0); IMMATURE GRANULOCYTE % (AUTO) 0.2 % (0.0-5.0); LYMPHOCYTES # (AUTO) 0.8 K/uL (0.60-3.4); LYMPHOCYTES % (AUTO) 15.1 (10.0-50.0); MEAN CORPUSCULAR HEMOGLOBIN 30.5 pg (27.0-31.0); MEAN CORPUSCULAR HGB CONC 31.6 (31.8-35.4); MEAN CORPUSCULAR VOLUME 96.3 fl (81.0-99.0); MONOCYTES # (AUTO) 0.5 K/uL (0.4-2.0); MONOCYTES % (AUTO) 10.6 (0-10); NEUTROPHILS # (AUTO) 3.6 K/ul (2.0-6.9); NEUTROPHILS % (AUTO) 70.8 % (42.2-75.2); PLATELET COUNT 167 10^3/uL (140-440); RDW COEFFICIENT OF VARIATION 14.8 % (11.6-14.8); RED BLOOD COUNT 3.25 10^6/ul (4.20-5.40); WHITE BLOOD COUNT 5.09 K/ul (4.6-10.2)
[2022-10-31 05:25] LABS: ALANINE AMINOTRANSFERASE 74.5 U/L (0-35); ALBUMIN 2.95 g/dL (3.5-5.0); ALKALINE PHOSPHATASE 120.7 U/L (53-141); ASPARTATE AMINO TRANSFERASE 87.7 U/L (14-36); BILIRUBIN,TOTAL 0.55 mg/dL (0.2-1.3); BLOOD UREA NITROGEN 15.4 mg/dL (7-17); CALCIUM 7.92 mg/dL (8.4-10.2); CARBON DIOXIDE 31.1 mmol/L (22-30.0); GLUCOSE 101.4 mg/dL (74-106); POTASSIUM 3.63 mmol/L (3.5-5.1); SODIUM 139.4 mmol/L (134.5-145); TOTAL PROTEIN 5.71 g/dL (6.3-8.2)
[2022-10-31] MEDS ORDERED: LOVENOX SUBCUT SCH (09:00)
[2022-10-31] MEDS ORDERED: [UNRECOGNIZED DRUG - OTHER] PO SCH (09:00)
[2022-10-31] MEDS ORDERED: PROCARDIA XL PO SCH (09:00)
[2022-10-31] MEDS ORDERED: MULTIVITAMIN TABLET PO SCH (10:00)
[2022-10-31 10:08] VITALS: BP 138/73; TEMP 97.1
--- NOTE | 2022-10-31 10:25 | PCM.PROG ---
Date Seen by Provider: 10/31/22 Time Seen by Provider: 10:00 Subjective: Patient tolerating oral intake. No complaints. Asking to go home. Objective: Vitals: T=97.1 F, P=63, R=17, QW=089/73, SPO2=96 Alert and in NAD. HEENT: []Oral mucosa moist Neck: [] Lungs: [] Clear. BS equal CVS: []RRR Abdomen: []Soft, nontender. Nondistended. Extremities: [] Neurological: [] Skin: [] Lab/Tests/Diagnostic Imaging: [] (1) Vomiting: Status: Acute Code(s): R11.10 - Vomiting, unspecified SNOMED Code(s): 869115843 Assessment: resolved (2) Nausea: Status: Acute Code(s): R11.0 - Nausea SNOMED Code(s): 088361697 (3) Elevated liver enzymes: Status: Acute Code(s): R74.8 - Abnormal levels of other serum enzymes SNOMED Code(s): 543880323 Assessment: LFTs improved today. Plan: Discharge. Follow up with your primary care provider in one week.
--- NOTE | 2022-10-31 10:28 | PCM.DC ---
Final Diagnosis: nausea and vomiting elevated liver enzymes Physical Exam Appearance: Well-appearing, No pain distress and Well-nourished Ill-appearing: None Pain Distress: None Eyes: Conjunctiva clear ENT: Nose normal and Oropharynx normal Neck: Supple Respiratory: Airway patent, Breath sounds clear and Breath sounds equal Cardiovascular: RRR, No rub and No murmur GI/: Soft, Nontender, No masses and Bowel sounds normal Musculoskeletal: No edema Skin: Warm, Dry and Normal color Neurological: Alert and Oriented Psychiatric: Affect appropriate and Mood appropriate (1) Vomiting: Status: Acute Code(s): R11.10 - Vomiting, unspecified SNOMED Code(s): 265079735 (2) Nausea: Status: Acute Code(s): R11.0 - Nausea SNOMED Code(s): 515466117 (3) Elevated liver enzymes: Status: Acute Code(s): R74.8 - Abnormal levels of other serum enzymes SNOMED Code(s): 120637943 Reason for Hospitalization: nausea and vomiting, elevated liver enzymes Prognosis/Condition at Discharge: Condition at discharge was good Medications at Discharge: Patient discharged on the same medications as she was taking at admission. Education Provided to Patient and Family: nausea and vomiting elevated liver enzymes Follow-ups: Follow up with your primary care provider within one week. Discharge Disposition: Home Hospital Course: Patient admitted with nausea and vomiting. She received IV fluids and antiemetics. Her symptoms resolved and she was tolerating diet at time of discharge. She was also noted to have elevated liver enzymes. These were much improved at discharge. Plan: Follow up with your primary care provider within one week.
[2022-10-31] MEDS ORDERED: LIPITOR PO SCH (21:00)
[2022-10-31] MEDS ORDERED: CATAPRES PO SCH (21:00)
== END 2022-10-31 13:17 | disposition home or self-care (01) ==
LOC: MEDSURG A 10:16 → ED 10:16 → MEDSURG A 18:14
PROVIDERS: ADMIT Internal Medicine Geriatric Medicine; ATTEND Surgery
DX: Z79.899 Other long term (current) drug therapy; Z20.822 Contact with and (suspected) exposure to COVID-19; R74.8 Abnormal levels of other serum enzymes; Z51.81 Encounter for therapeutic drug level monitoring; R07.9 Chest pain, unspecified; R11.0 Nausea; R11.10 Vomiting, unspecified; Z79.01 Long term (current) use of anticoagulants

== ENCOUNTER 2023-08-23 12:39 | Inpatient (IN) ==
--- NOTE | 2023-08-23 13:03 | ED.PDOC ---
General ED Provider: Dr. LATRELL LOREDO, DO Chief Complaint: Non-specific Complaint Stated Complaint: Patient is a 88 yo F here for dehydration patient arrives afebrile and vitally stable by POV with Patient seen by Dr. Dasilva and told she was dehydrated on lab work Patient reports hx of HTN, CV stenting Patient has had diarrhea x2 weeks and recently tried limotil No fever or abdominal pain Patient stable I cannot see recent lab work on our [employer] emr Patient amenable to lab redraw and fluid rehydration She declines advanced imaging at this time No chest pain No sob No dysuria No rashes She reports she is eating and drinking Time Seen by Provider: 08/23/23 12:52 Primary Care Provider: ZAKIYA DASILVA Nursing and Triage Documentation Reviewed and Agree: Yes What is Opioid Naive?: *Opioid Naive implies the patient is not already taking opioids or not chronically receiving opioids on a daily basis. *PRN dosing is not "usually" associated with tolerance. *Patients are at higher risk of over-sedation and aspiration. What is Opioid Tolerant?: *Opioid Tolerance implies less than the expected response to an opioid. *Acquired tolerance is defined by the patient taking 60mg of oral morphine daily (or equianalgesic dose of another opioid) for 1 week or more. *Often associated with chronic pain. *May take more than usual dose to achieve desired pain control. Review of Systems Review Of Systems Constitutional: Reports Other (dehydration); Denies Chills or Fever Eyes: Denies Blindness or Foreign body sensation Ears, Nose, Mouth, Throat: Denies Ear pain, Nose pain or Loose teeth Respiratory: Denies Cough or Wheezing Cardiac: Denies Palpitations or Syncope GI: Denies Abdominal pain, Diarrhea or Difficulty swallowing : Denies Burning or Dysuria Musculoskeletal: Denies Back pain or Neck pain Skin: Reports No symptoms Neurological: Reports No symptoms Endocrine: Reports No symptoms Hematologic/Lymphatic: Reports No symptoms All Other Systems: Reviewed and Negative [facility] Medical History Family History FATHER No problems noted. Mother Cancer Social History Alcohol intake: current Alcohol intake frequency: a few times a month Surgical History Female Reproductive History Menstrual Hx Hysterectomy: No Hx Tubal Ligation: No Physical Exam Physical Exam Appearance: Reports Well-appearing and Well-nourished Ill-appearing: Not Applicable Pain Distress: Not Applicable Eyes: Reports AMBER, EOMI and Conjunctiva clear ENT: Reports Ears normal, Nose normal and Oropharynx normal; Denies Dry mucosa Neck: Supple Respiratory: Reports Airway patent and Breath sounds clear; Denies Wheezes Cardiovascular: Reports RRR and Pulses normal GI/: Reports Soft and Nontender Musculoskeletal: Reports Normal strength and ROM intact Skin: Reports Warm, Dry and Other (no skin tenting) Neurological: Reports Sensation intact and Motor intact Psychiatric: Reports Affect appropriate and Mood appropriate Course Course 08/23/23 13:01 08/23/23 13:01 Orders, Labs, Meds: Lab Review 08/23/23 08/23/23 08/23/23 13:01 14:00 15:15 WBC 8.11 RBC 4.27 Hgb 12.7 Hct 38.5 MCV 90.2 MCH 29.7 MCHC 33.0 RDW Coeff of Peg 14.3 Plt Count 326 Immature Gran % (Auto) 1.2 Neut % (Auto) 68.1 Lymph % (Auto) 15.3 [place] % (Auto) 10.5 H Eos % (Auto) 4.7 Baso % (Auto) 0.2 Neut # (Auto) 5.5 Lymph # (Auto) 1.2 [place] # (Auto) 0.9 Eos # (Auto) 0.4 Baso # (Auto) 0.0 Immature Gran # (Auto) 0.1 Sodium 134.0 L Potassium 3.14 L Chloride 95.2 L Carbon Dioxide 28.5 Anion Gap 13.44 BUN 83.8 H* Creatinine 4.09 H* Estimated GFR (MDRD) 10.00 BUN/Creatinine Ratio 20.48 Glucose 120.1 H Calcium 9.24 Magnesium 1.68 Total Bilirubin 1.19 AST 148.2 H ALT 196.9 H Alkaline Phosphatase 443.2 H Total Creatine Kinase 62.5 Total Protein 7.52 Albumin 3.97 Globulin 3.55 Albumin/Globulin Ratio 1.11 Lipase 916.2 H Urine Color Yellow Urine Clarity Clear Urine pH 5.5 Ur Specific [place] <=1.005 Urine Protein Negative Urine Glucose (UA) Negative Urine Ketones Negative Urine Blood Negative Urine Nitrite Negative Urine Bilirubin Negative Urine Urobilinogen 0.2 Ur Leukocyte Esterase 1+ H Ur Squamous Epith Cells Pending SARS CoV-2 RNA Rapid JERAD Negative Orders Category Date Time Status ADMIT PATIENT INPATIENT .TO [facility] (NON-MONITORED ADMISSION 08/23/23 16:06 Active BED) BLADDER SCAN ONCE CARE 08/23/23 14:58 Active NPO REMINDER: IMAGING ONCE CARE 08/23/23 13:42 Completed Muñiz [ED CATHETER INSERTION AND CARE] .ONCE EMERGENCY 08/23/23 14:58 Active BMP [BASIC METABOLIC PANEL] Stat LAB 08/23/23 15:42 Received CBC W/ AUTO DIFF Stat LAB 08/23/23 13:01 Completed COMPREHENSIVE METABOLIC PANEL Stat LAB 08/23/23 13:01 Completed CPK [CREATINE KINASE] Stat LAB 08/23/23 13:01 Completed LIPASE Stat LAB 08/23/23 13:01 Completed MAGNESIUM Stat LAB 08/23/23 13:01 Completed SARS COV-2 RNA RAPID JERAD Stat LAB 08/23/23 14:00 Completed URINALYSIS C & S IF INDICATED Stat LAB 08/23/23 15:15 Results Lidocaine HCl Jelly [Glydo] Meds 08/23/23 14:58 Discontinued 5 ml TRANSURETH ONCE ONE Potassium Chloride in 0.9%NaCl [Sodium Chloride 0.9%- Meds 08/23/23 15:05 Active KCl 40Meq] 1,000 ml IV 125 mls/hr Sodium Chloride 0.9% [Sodium Chloride] 1,000 ml Meds 08/23/23 12:[address] ABDOMEN/PELVIS WO CONTRAST Stat RADS 08/23/23 13:42 Completed US RENAL [U/S KIDNEYS] Stat RADS 08/23/23 13:42 Completed Medications Generic Name Dose Route Start Last Admin Trade Name Freq PRN Reason Stop Dose Admin Potassium Chloride/Sodium Chloride 1,000 mls @ 125 mls/hr 08/23/23 15:05 08/23/23 15:59 Sodium Chloride 0.9%-Kcl 40meq IV 08/23/23 23:04 125 mls/hr .Q8H ONE Administration Discontinued Medications Generic Name Dose Route Start Last Admin Trade Name Freq PRN Reason Stop Dose Admin Sodium Chloride 1,000 mls @ 1,000 mls/hr 08/23/23 12:56 08/23/23 13:11 Sodium Chloride IV 08/23/23 13:55 500 mls/hr BOLUS ONE Administration Lidocaine HCl 5 ml 08/23/23 14:58 08/23/23 15:57 Lidocaine Jelly 11 Ml Jel.Pf.Rosario (5ml Female/11ml Male) TRANSURETH 08/23/23 14:59 Not Given ONCE ONE Vital Signs: Temp Pulse Resp BP Pulse Ox 08/23/23 12:59 97.9 F 80 18 128/73 94 L Acute renal failure GR 10, pending US renal bladder and ct abd, fluid hydration in process Will hold lasix/losartan MDM: patient is a 88 yo F here for outpatient labs showing elevated creatinine patient arrives afebrile and vitally stable Hx from patient chart review by me Exam cocnenring for bladder fullness 3+ labs and 2 image results reviewed by me Patient improved with hydration and placement of urinary muñiz catheter We suspect ARF 2/2 diarrhea x 2 weeks, decreased PO intake/dehydration and continued use of Lasix WDX: Acute renal failure, dehydration, acute urinary retention, hypokalemia acute high complexity DDX: I considered hyperkalemia, sepsis, renal avulsion but these were not found Patient declined transfer for care with nephrology SDOH: Patient will improve with admission and hydration and manage care I consulted Hospitalist and ASTER Smith accepts patient appreciate her time All questions answered Patient admitted per patient request Discharge Plan Discharge Patient Disposition: ADMITTED INPATIENT Discharge Problem: Acute renal failure, Diarrhea, Acute urinary retention, Acute hypokalemia Did you review [place] [employer] for ALL controlled substances?: Not Applicable ED Provider: LATRELL LOREDO Condition: Fair Physician Progress Note: []
[2023-08-23] MEDS: SODIUM CHLORIDE 1,000 ML IV ONE (13:11)
[2023-08-23 13:23] LABS: BASOPHILS % (AUTO) 0.2 % (0.0-3.0); EOSINOPHILS # (AUTO) 0.4 K/ul (0.0-0.7); EOSINOPHILS % (AUTO) 4.7 % (0.0-7.0); HEMATOCRIT 38.5 % (37.0-47.0); HEMOGLOBIN 12.7 g/dl (12.0-16.0); IMMATURE GRANULOCYTE # (AUTO) 0.1 (0.0-1.0); IMMATURE GRANULOCYTE % (AUTO) 1.2 % (0.0-5.0); LYMPHOCYTES # (AUTO) 1.2 K/uL (0.60-3.4); LYMPHOCYTES % (AUTO) 15.3 (10.0-50.0); MEAN CORPUSCULAR HEMOGLOBIN 29.7 pg (27.0-31.0); MEAN CORPUSCULAR VOLUME 90.2 fl (81.0-99.0); MONOCYTES # (AUTO) 0.9 K/uL (0.4-2.0); MONOCYTES % (AUTO) 10.5 (0-10); NEUTROPHILS # (AUTO) 5.5 K/ul (2.0-6.9); NEUTROPHILS % (AUTO) 68.1 % (42.2-75.2); PLATELET COUNT 326 10^3/uL (140-440); RDW COEFFICIENT OF VARIATION 14.3 % (11.6-14.8); RED BLOOD COUNT 4.27 10^6/ul (4.20-5.40); WHITE BLOOD COUNT 8.11 K/ul (4.6-10.2)
[2023-08-23 13:24] LABS: ALANINE AMINOTRANSFERASE 196.9 U/L (0-35); ALBUMIN 3.97 g/dL (3.5-5.0); ALKALINE PHOSPHATASE 443.2 U/L (53-141); ASPARTATE AMINO TRANSFERASE 148.2 U/L (14-36); BILIRUBIN,TOTAL 1.19 mg/dL (0.2-1.3); CALCIUM 9.24 mg/dL (8.4-10.2); CARBON DIOXIDE 28.5 mmol/L (22-30.0); CHLORIDE 95.2 mmol/L (98-107); GLUCOSE 120.1 mg/dL (74-106); LIPASE 916.2 U/L (23-300); MAGNESIUM 1.68 mg/dL (1.6-2.3); POTASSIUM 3.14 mmol/L (3.5-5.1); TOTAL PROTEIN 7.52 g/dL (6.3-8.2)
[2023-08-23 13:31] LABS: BLOOD UREA NITROGEN 83.8 mg/dL (7-17); CREATININE 4.09 mg/dL (0.60-1.30)
[2023-08-23 14:30] LABS: SARS COV-2 RNA RAPID NAAT NEGATIVE (NEGATIVE)
--- NOTE | 2023-08-23 14:31 | US ---
EXAM: RENAL (RETROPERITONEAL) ULTRASOUND HISTORY: Acute renal failure TECHNIQUE: Sonography of the kidneys and urinary bladder was performed. Images were obtained and sto red in a permanent archive. COMPARISON: CT abdomen/pelvis from 10/30/2022 FINDINGS: Right Kidney: - Renal length: 10.1 cm. - Parenchyma: Isoechoic to the liver. Normal parenchymal thickness. - Collecting system: No hydronephrosis. - Calculus: None. - Lesion: Three simple cysts ranging size between 3.0 cm and 0.8 cm. Left Kidney: - Renal length: 11.1 cm. - Parenchyma: Isoechoic to the spleen. Normal parenchymal thickness. - Collecting system: No hydronephrosis. - Calculus: None. - Lesion: Simple cyst at the superior pole measuring 1.4 cm. Bladder: Normal distension. No wall thickening. No calculus. Ureteral jets not visualized. IMPRESSION: 1. Suggestion of chronic renal parenchymal disease. 2. No hydronephrosis. 3. Simple acquired bilateral renal cysts.
--- NOTE | 2023-08-23 14:52 | CT ---
EXAM: CT ABDOMEN/PELVIS WITHOUT CONTRAST HISTORY: Acute renal failure 2/2, diarrhea, pain COMPARISON: CT abdomen/pelvis from 10/30/2022 TECHNIQUE: Multi-slice transaxial helical images are acquired through the abdomen and pelvis with co antoine and sagittal reconstructed images. All CT scans are performed using dose optimization techni ques as appropriate to the performed exam and includes at least one of the following: Automated expo sure control, adjustment of the mA and/or kV according to size, and the use of iterative reconstructi on technique. CONTRAST: None. FINDINGS: Lung bases: There is a stable solid nodule in the right lower lobe medially measuring 0.5 cm on seri es 3 image number 21. The dependent lungs are atelectatic. No pleural effusions. Liver: There is a stable hypodense lesion in hepatic segment 5/6 measuring 0.4 cm on axial image num alec 49. This is too small to characterize with accuracy but probably represents a simple cyst. No o ther hepatic lesions. The background hepatic attenuation is normal. Gallbladder/bilary tree: The gallbladder is surgically absent. The common bile duct is dilated to 1 .2 cm. There is suggestion of mild intrahepatic biliary dilatation. Pancreas: There is a hypodense lesion at the pancreatic head measuring 1.2 cm. The pancreatic atten uation is otherwise normal. Adrenal glands: A left adrenal nodule measuring 1.3 cm has low attenuation. The right adrenal gland i s grossly normal. Spleen: Normal. Kidneys: Simple acquired renal cysts are suggested bilaterally. No nephrolithiasis or ureterolithia sis. There is mild right greater than left hydroureteronephrosis. Retroperitoneum: The abdominal aorta is atherosclerotic. No retroperitoneal lymphadenopathy or denita kelsie. Peritoneum: Normal. Bowel: The appendix is normal. Diverticula arise from large bowel without CT evidence of diverticul itis. There is formed stool in the rectum. No intestinal distension. Pelvis: The bladder is distended. The uterus and adnexa are normal. Addominal wall/bones: An epigastric hernia has a cranial caudal defect of 5.3 cm and transmits oment al fat. No other body wall hernias. No suspicious bone lesions or acute osseous abnormalities. IMPRESSION: 1. Stable solid nodule in the right lower lobe measuring 0.5 cm. An optional follow-up chest CT may be obtained in 12 months if there are risk factors for lung cancer such as smoking according to the F leischner Society guidelines. 2. Previous cholecystectomy with biliary dilatation. 3. Indeterminate hypodense lesion in the pancreatic head measuring 1.2 cm. Recommend non-emergent co rrelation with an MRI of the abdomen without and with contrast/MRCP. 4. Simple acquired renal cysts. 5. Probable left adrenal adenoma. 6. Mild bilateral hydroureteronephrosis is likely related to the distended bladder causing stasis/ref lux. 7. Colonic diverticulosis without CT evidence of diverticulitis. 8. Epigastric fat transmitting hernia. . All CT scans are performed using dose optimization techniques as appropriate to the performed exam an d include at least one of the following: Automated exposure control, adjustment of the mA and/or kV according t o size, and the use of iterative reconstruction technique.
[2023-08-23] MEDS: GLYDO TRANSURETH ONE (15:57)
[2023-08-23] MEDS: SODIUM CHLORIDE 0.9%-KCL 40MEQ 1,000 ML IV ONE (15:59)
[2023-08-23 16:03] LABS: BILIRUBIN,URINE Negative (NEGATIVE); CLARITY,URINE Clear (CLEAR); COLOR,URINE Yellow (YELLOW); GLUCOSE, URINE (UA) Negative (NEGATIVE); KETONES,URINE Negative (NEGATIVE); LEUKOCYTE ESTERASE ,URINE 1+ (NEGATIVE); NITRITE,URINE Negative (NEGATIVE); PH,URINE 5.5 (5-9); PROTEIN,URINE Negative (NEGATIVE); URINE, BLOOD Negative (NEGATIVE); UROBILINOGEN,URINE 0.2 (0.2)
[2023-08-23 16:05] LABS: CALCIUM 8.87 mg/dL (8.4-10.2); CARBON DIOXIDE 24.9 mmol/L (22-30.0); CHLORIDE 98.6 mmol/L (98-107); GLUCOSE 100.2 mg/dL (74-106); SODIUM 136.5 mmol/L (134.5-145)
[2023-08-23 16:07] LABS: POTASSIUM 2.87 mmol/L (3.5-5.1)
[2023-08-23] MEDS ORDERED: ZOFRAN 4 MG/2 ML IVP PRN (16:10)
[2023-08-23 16:11] LABS: BACTERIA,URINE TRACE (NOT PRESENT); TRIPLE PHOSPHATE CRYSTAL,UR 1+ (NOT PRESENT)
[2023-08-23 16:12] LABS: OTHER CASTS, URINE 0-2 (NOT PRESENT)
[2023-08-23 16:13] LABS: CREATININE 3.63 mg/dL (0.60-1.30)
[2023-08-23 17:42] VITALS: BMI 30.2
[2023-08-23] MEDS: K-DUR PO ONE (19:35)
[2023-08-23] MEDS: LACTATED RINGERS 1,000 ML IV SCH (19:36)
[2023-08-23] MEDS: NAMENDA PO SCH (21:23)
[2023-08-23] MEDS: ASPIRIN EC PO SCH (21:23)
[2023-08-24 05:27] LABS: BASOPHILS % (AUTO) 0.3 % (0.0-3.0); EOSINOPHILS # (AUTO) 0.4 K/ul (0.0-0.7); EOSINOPHILS % (AUTO) 5.7 % (0.0-7.0); HEMATOCRIT 33.4 % (37.0-47.0); HEMOGLOBIN 10.9 g/dl (12.0-16.0); IMMATURE GRANULOCYTE # (AUTO) 0.1 (0.0-1.0); IMMATURE GRANULOCYTE % (AUTO) 1.2 % (0.0-5.0); LYMPHOCYTES # (AUTO) 1.4 K/uL (0.60-3.4); LYMPHOCYTES % (AUTO) 19.4 (10.0-50.0); MEAN CORPUSCULAR HEMOGLOBIN 29.9 pg (27.0-31.0); MEAN CORPUSCULAR HGB CONC 32.6 (31.8-35.4); MEAN CORPUSCULAR VOLUME 91.5 fl (81.0-99.0); MONOCYTES # (AUTO) 0.9 K/uL (0.4-2.0); MONOCYTES % (AUTO) 11.4 (0-10); NEUTROPHILS # (AUTO) 4.6 K/ul (2.0-6.9); PLATELET COUNT 282 10^3/uL (140-440); RDW COEFFICIENT OF VARIATION 14.3 % (11.6-14.8); RED BLOOD COUNT 3.65 10^6/ul (4.20-5.40); WHITE BLOOD COUNT 7.43 K/ul (4.6-10.2)
[2023-08-24] MEDS: PROTONIX PO SCH (05:30)
[2023-08-24 05:44] LABS: ALANINE AMINOTRANSFERASE 144.1 U/L (0-35); ALBUMIN 3.4 g/dL (3.5-5.0); ALKALINE PHOSPHATASE 368.9 U/L (53-141); ASPARTATE AMINO TRANSFERASE 109.7 U/L (14-36); BILIRUBIN,TOTAL 1.03 mg/dL (0.2-1.3); CALCIUM 8.93 mg/dL (8.4-10.2); CARBON DIOXIDE 25.8 mmol/L (22-30.0); CREATININE 2.8 mg/dL (0.60-1.30); GLUCOSE 96.8 mg/dL (74-106); POTASSIUM 3.88 mmol/L (3.5-5.1); SODIUM 138.9 mmol/L (134.5-145); TOTAL PROTEIN 6.49 g/dL (6.3-8.2)
[2023-08-24 05:53] LABS: BLOOD UREA NITROGEN 73.5 mg/dL (7-17)
[2023-08-24] MEDS: ASPIRIN EC PO SCH (08:21)
[2023-08-24] MEDS: PROCARDIA XL PO SCH (08:21)
[2023-08-24] MEDS: LIPITOR PO SCH (08:21)
[2023-08-24] MEDS: PLAVIX PO SCH (08:22)
[2023-08-24 10:50] LABS: CREATININE, URINE 72.6 mg/dL (Not Estab.)
--- NOTE | 2023-08-24 12:24 | PCM ---
Date of Service Date Seen by Provider: 08/24/23 Time Seen by Provider: 09:20 Admit Day/Time Admission Date: 08/23/23 Admission Time: 16:06 Reason for Admission Chief Complaint: ACUTE RENAL FAILURE Hospital Provider Hospital Provider: CADE MCCULLOUGH PA-C, [facility] [place] Phys[place] Primary Care Physician: ZAKIYA DASILVA History of Present Illness History of Present Illness: Patient is a 88 year old female with pmhx of hyperlipidemia, hypertension, dementia, gerd, who presented from home for dehydration. She had seen her PCP and had labs done showing worsened Cr. She had some diarrhea for a couple weeks and was continuing her diuretics. However she states her diarrhea has resolved. No n/v, abd pain. She was noted to have a Cr of 4 and BUN of 83, baseline is normal renal function. She is making urine. CT a/p negative for acute findings but did note a distended bladder. Schwartz was placed with good return of urine. In ER she was given fluids and potassium. Admitted to med surg. On my evaluation this morning patient is feeling better, slept well last night. Has no complaints. Understands why she was admitted. Seems indifferent. Case Discussed With Case Discussed With: Patient's case was discussed with the ER Physicians, Dr. Varela. [facility] Medical History Arthritis M19.90 - Unspecified osteoarthritis, unspecified site (ICD-10) Allergies T78.40XA - Allergy, unspecified, initial encounter (ICD-10) Heart disease I51.9 - Heart disease, unspecified (ICD-10) Cancer skin C80.1 - Malignant (primary) neoplasm, unspecified (ICD-10) Acid reflux K21.9 - Gastro-esophageal reflux disease without esophagitis (ICD-10) Hypertension I10 - Essential (primary) hypertension (ICD-10) Surgical History History of angioplasty Z98.62 - Peripheral vascular angioplasty status (ICD-10) History of heart surgery Z98.890 - Other specified postprocedural states (ICD-10) Tubal ligation status Z98.51 - Tubal ligation status (ICD-10) History of cholecystectomy Z90.49 - Other specified postprocedural states (ICD-10) Family History FATHER No problems noted. Mother Cancer Social History Smoking and tobacco status: Never smoker Alcohol intake: current Alcohol intake frequency: a few times a month Allergies Allergies Allergy/AdvReac Type Severity Reaction Status Date / Time bacitracin AdvReac Severe rash Verified 08/23/23 12:58 [From Neosporin ([id number])] neomycin AdvReac Severe rash Verified 08/23/23 12:58 [From Neosporin ([id number])] Penicillins AdvReac Severe cant breath Verified 08/23/23 12:58 polymyxin B AdvReac Severe rash Verified 08/23/23 12:58 [From Neosporin ([id number])] Current Medications Home Medications atorvastatin 40 mg tablet 40 mg PO DAILY 10/31/21 [History Confirmed 08/23/23 Last Taken 08/23/23 08:00] clonidine HCl 0.1 mg tablet 0.1 mg PO BEDTIME 10/31/21 [History Confirmed 10/30/22 Last Taken Unknown] multivitamin,tx-minerals 1 tab PO DAILY 10/31/21 [History Confirmed 08/23/23 Last Taken 08/23/23 08:00] nifedipine 30 mg tablet,extended release 24 hr (Procardia XL) 30 mg PO DAILY 0 10/31/21 [History Confirmed 08/23/23 Last Taken 08/23/23 08:00] furosemide 40 mg tablet (Lasix) 40 mg PO DAILY 10/31/22 [History Confirmed 08/23/23 Last Taken 08/23/23 08:00] potassium chloride 10 mEq capsule,extended release 10 meq PO DAILY LAB 10/31/22 [History Confirmed 10/31/22 Last Taken Unknown] aspirin 81 mg tablet,delayed release (Adult Aspirin Regimen) 81 mg PO BID 08/23/23 [History Confirmed 08/23/23 Last Taken 08/23/23 08:00] clopidogrel 75 mg tablet 75 mg PO DAILY 08/23/23 [History Confirmed 08/23/23 Last Taken 08/23/23 08:00] losartan 100 mg tablet 100 mg PO DAILY 08/23/23 [History Confirmed 08/23/23 Last Taken 08/23/23 08:00] memantine 10 mg tablet 10 mg PO BID 08/23/23 [History Confirmed 08/23/23 Last Taken 08/23/23 08:00] pantoprazole 40 mg tablet,delayed release 40 mg PO .QDAC 08/23/23 [History Confirmed 08/23/23 Last Taken 08/23/23 07:00] Home Acetaminophen (Acetaminophen 325 Mg Tablet) 650 mg PO Q4H PRN PRN Reason: Mild Pain Aspirin (Aspirin 81 Mg Tablet.) 81 mg PO BIDWM2 [facility] Last Admin: 08/24/23 08:21 Dose: 81 mg Atorvastatin Calcium (Atorvastatin Calcium 20 Mg Tablet) 40 mg PO DAILY [facility] Last Admin: 08/24/23 08:21 Dose: 40 mg Clopidogrel Bisulfate (Clopidogrel Bisulfate 75 Mg Tablet) 75 mg PO DAILY [facility] Last Admin: 08/24/23 08:22 Dose: 75 mg Enoxaparin Sodium (Enoxaparin Sodium 30 Mg/0.3 Ml Syr) 30 mg SUBCUT DAILY [facility] Lactated Ringer's (Lactated Ringers) 1,000 mls @ 100 mls/hr IV .Q10H [facility] Last Admin: 08/24/23 05:26 Dose: 100 mls/hr Memantine (Memantine Hcl 10 Mg Tablet) 10 mg PO BID [facility] Last Admin: 08/24/23 08:22 Dose: 10 mg Nifedipine (Nifedipine 30 Mg Tab.Er.24) 30 mg PO DAILY [facility] Last Admin: 08/24/23 08:21 Dose: 30 mg Ondansetron HCl (Ondansetron Hcl/Pf 4 Mg/2 Ml Sdv) 4 mg IVP Q6H PRN PRN Reason: Nausea / Vomiting Pantoprazole Sodium (Pantoprazole Sodium 40 Mg Tablet.) 40 mg PO 0630 [facility] Last Admin: 08/24/23 05:30 Dose: 40 mg Discontinued Medications Aspirin (Aspirin 81 Mg Tablet.) 81 mg PO BID [facility] Last Admin: 08/23/23 21:23 Dose: 81 mg Sodium Chloride (Sodium Chloride) 1,000 mls @ 1,000 mls/hr IV BOLUS ONE Stop: 08/23/23 13:55 Last Infusion: 08/24/23 08:23 Dose: Infused Potassium Chloride/Sodium Chloride (Sodium Chloride 0.9%-Kcl 40meq) 1,000 mls @ 125 mls/hr IV .Q8H ONE Stop: 08/23/23 23:04 Last Infusion: 08/24/23 08:22 Dose: Infused Lidocaine HCl (Lidocaine Jelly 11 Ml Jel.Pf.Rosario (5ml Female/11ml Male)) 5 ml TRANSURETH ONCE ONE Stop: 08/23/23 14:59 Last Admin: 08/23/23 15:57 Dose: Not Given Potassium Chloride (Potassium Chloride 20 Meq Tab) 60 meq PO ONCE ONE Stop: 08/23/23 19:02 Last Admin: 08/23/23 19:35 Dose: 60 meq Opioid Naive vs. Tolerant Does Patient Take Opioids?: No Is Patient Opioid Naive?: Yes What is Opioid Naive?: *Opioid Naive implies the patient is not already taking opioids or not chronically receiving opioids on a daily basis. *PRN dosing is not "usually" associated with tolerance. *Patients are at higher risk of over-sedation and aspiration. Is Patient Opioid Tolerant?: No What is Opioid Tolerant?: *Opioid Tolerance implies less than the expected response to an opioid. *Acquired tolerance is defined by the patient taking 60mg of oral morphine daily (or equianalgesic dose of another opioid) for 1 week or more. *Often associated with chronic pain. *May take more than usual dose to achieve desired pain control. Review of Systems Constitutional: Reports Fatigue and Weakness Head: Reports Normocephalic and Atraumatic Throat: Denies Sore Throat or Difficulty Swallowing Cardiovascular: Denies Chest pain, Chest Pressure or Edema Respiratory: Denies Cough or Shortness of air Gastrointestinal: Reports Diarrhea; Denies Nausea, Vomiting, Abdominal pain or Melena Genitourinary: Denies Dysuria or Frequency Dermatologic: Denies Rashes Neurological: Reports Weakness Physical examination Most Recent Vital Signs: Most Recent Vital Signs Temperature 97.7 F 08/24/23 05:19 Temperature Source Temporal Artery Scan 08/24/23 05:19 Temperature Source Infrared 08/23/23 12:59 Pulse Rate 65 08/24/23 05:19 Respiratory Rate 18 08/24/23 05:19 Blood Pressure 119/65 08/24/23 05:19 Blood Pressure Mean 83 08/24/23 05:19 Blood Pressure Left Arm 124/72 08/23/23 17:28 Blood Pressure Location Right Arm 08/24/23 05:19 Blood Pressure Position Supine 08/24/23 05:19 O2 Sat by Pulse Oximetry 93 L 08/24/23 05:19 Oxygen Delivery Method Room Air 08/24/23 08:00 Height 5 ft 2 in 08/23/23 17:28 Weight 165 lb 2 oz 08/23/23 18:13 Telemetry Type Bedside Monitor 08/24/23 07:00 Telemetry Monitoring Continues 08/24/23 07:00 Telemetry Heart Rate 67 08/24/23 07:00 EKG UT Interval 0.16 08/24/23 07:00 EKG QRS Interval 0.08 08/24/23 07:00 Telemetry Strip Reading SR 08/24/23 07:00 Appearance: Positive No Apparent Distress and Alert and Oriented x3 Skin: Positive [place] and Warm; Negative Rashes or Good Turgor HEENT: Positive Normocephalic and Atraumatic; Negative Oral Mucous Moist (dry lips and mucosa ) Neck: Positive Supple and Midline Trachea Chest/Lungs: Positive Clear to Auscultation Bilaterally; Negative Rales, Rhonci or Wheezes Heart: Positive RRR GI/: Positive Soft, Nontender, Bowel Sounds Normal and No Distention Extremities: Negative Edema Neurological: Positive Cranial Nerves Intact, Alert, Oriented and Other (+generalized weakness ) Psychiatric: Positive Oriented x4, Appropriate Mood and Appropriate Affect Labs This Visit Labs This Visit: Labs This Visit 08/23/23 08/23/23 08/23/23 13:01 14:00 15:15 WBC 8.11 RBC 4.27 Hgb 12.7 Hct 38.5 MCV 90.2 MCH 29.7 MCHC 33.0 RDW Coeff of Peg 14.3 Plt Count 326 Immature Gran % (Auto) 1.2 Neut % (Auto) 68.1 Lymph % (Auto) 15.3 Spencer % (Auto) 10.5 H Eos % (Auto) 4.7 Baso % (Auto) 0.2 Neut # (Auto) 5.5 Lymph # (Auto) 1.2 Spencer # (Auto) 0.9 Eos # (Auto) 0.4 Baso # (Auto) 0.0 Immature Gran # (Auto) 0.1 Sodium 134.0 L Potassium 3.14 L Chloride 95.2 L Carbon Dioxide 28.5 Anion Gap 13.44 BUN 83.8 H* Creatinine 4.09 H* Estimated GFR (MDRD) 10.00 BUN/Creatinine Ratio 20.48 Glucose 120.1 H Calcium 9.24 Magnesium 1.68 Total Bilirubin 1.19 AST 148.2 H ALT 196.9 H Alkaline Phosphatase 443.2 H Total Creatine Kinase 62.5 Total Protein 7.52 Albumin 3.97 Globulin 3.55 Albumin/Globulin Ratio 1.11 Lipase 916.2 H Urine Color Yellow Urine Clarity Clear Urine pH 5.5 Ur Specific [place] <=1.005 Urine Protein Negative Urine Glucose (UA) Negative Urine Ketones Negative Urine Blood Negative Urine Nitrite Negative Urine Bilirubin Negative Urine Urobilinogen 0.2 Ur Leukocyte Esterase 1+ H Urine Microscopic WBC 10-20 Ur Squamous Epith Cells 5-10 Ur Renal Epithelial Cell 2-5 Triple Phos Crystals 1+ Urine Bacteria Trace Hyaline Casts 5-10 Other Casts 0-2 Ur Random Sodium 23 Urine Creatinine 72.6 SARS CoV-2 RNA Rapid JERAD Negative 08/23/23 08/24/23 15:42 05:17 WBC 7.43 RBC 3.65 L Hgb 10.9 L Hct 33.4 L MCV 91.5 MCH 29.9 MCHC 32.6 RDW Coeff of Peg 14.3 Plt Count 282 Immature Gran % (Auto) 1.2 Neut % (Auto) 62.0 Lymph % (Auto) 19.4 Spencer % (Auto) 11.4 H Eos % (Auto) 5.7 Baso % (Auto) 0.3 Neut # (Auto) 4.6 Lymph # (Auto) 1.4 Spencer # (Auto) 0.9 Eos # (Auto) 0.4 Baso # (Auto) 0.0 Immature Gran # (Auto) 0.1 Sodium 136.5 138.9 Potassium 2.87 L 3.88 Chloride 98.6 105.0 Carbon Dioxide 24.9 25.8 Anion Gap 15.87 11.98 BUN 85.0 H* 73.5 H* Creatinine 3.63 H* 2.80 H D Estimated GFR (MDRD) 12.00 16.00 BUN/Creatinine Ratio 23.41 26.25 Glucose 100.2 96.8 Calcium 8.87 8.93 Magnesium Total Bilirubin 1.03 AST 109.7 H D ALT 144.1 H D Alkaline Phosphatase 368.9 H D Total Creatine Kinase Total Protein 6.49 Albumin 3.40 L Globulin 3.09 Albumin/Globulin Ratio 1.10 Lipase Urine Color Urine Clarity Urine pH Ur Specific [place] Urine Protein Urine Glucose (UA) Urine Ketones Urine Blood Urine Nitrite Urine Bilirubin Urine Urobilinogen Ur Leukocyte Esterase Urine Microscopic WBC Ur Squamous Epith Cells Ur Renal Epithelial Cell Triple Phos Crystals Urine Bacteria Hyaline Casts Other Casts Ur Random Sodium Urine Creatinine SARS CoV-2 RNA Rapid JERAD Microbiology This Visit 08/23/23 15:15 Urine,Random Urine Culture - Preliminary Imaging Imaging: EXAM: CT ABDOMEN/PELVIS WITHOUT CONTRAST HISTORY: Acute renal failure 2/2, diarrhea, pain COMPARISON: CT abdomen/pelvis from 10/30/2022 TECHNIQUE: Multi-slice transaxial helical images are acquired through the abdomen and pelvis with coronal and sagittal reconstructed images. All CT scans are performed using dose optimization techniques as appropriate to the performed exam and includes at least one of the following: Automated exposure control, adjustment of the mA and/or kV according to size, and the use of iterative reconstruction technique. CONTRAST: None. FINDINGS: Lung bases: There is a stable solid nodule in the right lower lobe medially measuring 0.5 cm on series 3 image number 21. The dependent lungs are atelectatic. No pleural effusions. Liver: There is a stable hypodense lesion in hepatic segment 5/6 measuring 0.4 cm on axial image number 49. This is too small to characterize with accuracy but probably represents a simple cyst. No other hepatic lesions. The background hepatic attenuation is normal. Gallbladder/bilary tree: The gallbladder is surgically absent. The common bile duct is dilated to 1.2 cm. There is suggestion of mild intrahepatic biliary dilatation. Pancreas: There is a hypodense lesion at the pancreatic head measuring 1.2 cm. The pancreatic attenuation is otherwise normal. Adrenal glands: A left adrenal nodule measuring 1.3 cm has low attenuation. The right adrenal gland is grossly normal. Spleen: Normal. Kidneys: Simple acquired renal cysts are suggested bilaterally. No nephrolithiasis or ureterolithiasis. There is mild right greater than left hydroureteronephrosis. Retroperitoneum: The abdominal aorta is atherosclerotic. No retroperitoneal lymphadenopathy or hematomas. Peritoneum: Normal. Bowel: The appendix is normal. Diverticula arise from large bowel without CT evidence of diverticulitis. There is formed stool in the rectum. No intestinal distension. Pelvis: The bladder is distended. The uterus and adnexa are normal. Addominal wall/bones: An epigastric hernia has a cranial caudal defect of 5.3 cm and transmits omental fat. No other body wall hernias. No suspicious bone lesions or acute osseous abnormalities. IMPRESSION: 1. Stable solid nodule in the right lower lobe measuring 0.5 cm. An optional follow-up chest CT may be obtained in 12 months if there are risk factors for lung cancer such as smoking according to the Fleischner Society guidelines. 2. Previous cholecystectomy with biliary dilatation. 3. Indeterminate hypodense lesion in the pancreatic head measuring 1.2 cm. Recommend non-emergent correlation with an MRI of the abdomen without and with contrast/MRCP. 4. Simple acquired renal cysts. 5. Probable left adrenal adenoma. 6. Mild bilateral hydroureteronephrosis is likely related to the distended bladder causing stasis/reflux. 7. Colonic diverticulosis without CT evidence of diverticulitis. 8. Epigastric fat transmitting hernia. EXAM: RENAL (RETROPERITONEAL) ULTRASOUND HISTORY: Acute renal failure TECHNIQUE: Sonography of the kidneys and urinary bladder was performed. Images were obtained and stored in a permanent archive. COMPARISON: CT abdomen/pelvis from 10/30/2022 FINDINGS: Right Kidney: - Renal length: 10.1 cm. - Parenchyma: Isoechoic to the liver. Normal parenchymal thickness. - Collecting system: No hydronephrosis. - Calculus: None. - Lesion: Three simple cysts ranging size between 3.0 cm and 0.8 cm. Left Kidney: - Renal length: 11.1 cm. - Parenchyma: Isoechoic to the spleen. Normal parenchymal thickness. - Collecting system: No hydronephrosis. - Calculus: None. - Lesion: Simple cyst at the superior pole measuring 1.4 cm. Bladder: Normal distension. No wall thickening. No calculus. Ureteral jets not visualized. IMPRESSION: 1. Suggestion of chronic renal parenchymal disease. 2. No hydronephrosis. 3. Simple acquired bilateral renal cysts. Review Statement Review Statement: I have independently reviewed and interpreted the labs/EKGs/imaging that were ordered by the ER provider. I have reviewed all outside records that are available currently in our EMR including imaging/notes/labs from previous visits. Plan Plan: 1. Acute renal failure in setting of dehydration, diarrhea, and diuretic use - Improving. Cont fluids. Hold lasix, losartan. Urine cr and na pending. 2. Diarrhea - Resolved. Cont to monitor. 3. Hypertension - Cont procardia 4. Hyperlipidemia - Cont home meds 5. GERD - Cont home meds 6. CAD - Cont plavix and asa DVT Prophylaxis: Lovenox Time Spent: Greater than 80 minutes spent with patient, 50% of the time spent with this patient was devoted to counseling and coordination of care. [facility] minutes spent discussing advance care planning. FULL CODE Admit to: Inpatient Discussed Plan of Care with Dr. Cathi Jansen. Medications Medication Orders: Medications Ordered Category Date Time Status Acetaminophen [Tylenol] Meds 08/23/23 16:10 Active 650 mg PO Q4H PRN Aspirin [Aspirin EC] Meds 08/24/23 08:00 Active 81 mg PO [id number] Atorvastatin Calcium [Lipitor] Meds 08/24/23 09:00 Active 40 mg PO DAILY Clopidogrel Bisulfate [Plavix] Meds 08/24/23 09:00 Active 75 mg PO DAILY Memantine HCl [Namenda] Meds 08/23/23 21:00 Active 10 mg PO BID Nifedipine [Procardia Xl] Meds 08/24/23 09:00 Active 30 mg PO DAILY Ondansetron HCl/Pf [Zofran 4 mg/2 ml] Meds 08/23/23 16:10 Active 4 mg IVP Q6H PRN Pantoprazole Sodium [Protonix] Meds 08/24/23 06:30 Active 40 mg PO 0630 Ringers Lactated Solution [Lactated Ringers] 1,000 ml Meds 08/23/23 16:30 Active IV 100 mls/hr
[2023-08-25 05:49] LABS: BASOPHILS % (AUTO) 0.3 % (0.0-3.0); EOSINOPHILS # (AUTO) 0.5 K/ul (0.0-0.7); EOSINOPHILS % (AUTO) 6.6 % (0.0-7.0); HEMOGLOBIN 10.5 g/dl (12.0-16.0); IMMATURE GRANULOCYTE # (AUTO) 0.1 (0.0-1.0); IMMATURE GRANULOCYTE % (AUTO) 0.9 % (0.0-5.0); LYMPHOCYTES # (AUTO) 1.4 K/uL (0.60-3.4); LYMPHOCYTES % (AUTO) 19.2 (10.0-50.0); MEAN CORPUSCULAR HEMOGLOBIN 30.5 pg (27.0-31.0); MEAN CORPUSCULAR HGB CONC 32.8 (31.8-35.4); MONOCYTES # (AUTO) 0.7 K/uL (0.4-2.0); MONOCYTES % (AUTO) 9.5 (0-10); NEUTROPHILS # (AUTO) 4.7 K/ul (2.0-6.9); NEUTROPHILS % (AUTO) 63.5 % (42.2-75.2); PLATELET COUNT 251 10^3/uL (140-440); RDW COEFFICIENT OF VARIATION 14.7 % (11.6-14.8); RED BLOOD COUNT 3.44 10^6/ul (4.20-5.40)
[2023-08-25 05:58] LABS: ALANINE AMINOTRANSFERASE 103.8 U/L (0-35); ALBUMIN 3.22 g/dL (3.5-5.0); ASPARTATE AMINO TRANSFERASE 82.2 U/L (14-36); BILIRUBIN,TOTAL 0.98 mg/dL (0.2-1.3); BLOOD UREA NITROGEN 49.2 mg/dL (7-17); CALCIUM 8.95 mg/dL (8.4-10.2); CARBON DIOXIDE 27.6 mmol/L (22-30.0); CREATININE 1.97 mg/dL (0.60-1.30); GLUCOSE 107.4 mg/dL (74-106); POTASSIUM 3.69 mmol/L (3.5-5.1); TOTAL PROTEIN 6.31 g/dL (6.3-8.2)
[2023-08-25] MEDS: LOVENOX SUBCUT SCH (08:35)
--- NOTE | 2023-08-25 09:41 | PCM.PROG ---
Date/Time Seen Date Seen by Provider: 08/25/23 Time Seen by Provider: 08:50 Provider Provider: CADE MCCULLOUGH PA-C, [facility] Chief Complaint Chief Complaint: ACUTE RENAL FAILURE Subjective Subjective: Patient is feeling better. Sitting up in bed. Efren came out yesterday. Labs continue to improve, but not yet at baseline. She is urinating well without difficulty. Has not had any diarrhea or vomiting. Objective Appearance: Positive Well-appearing, Well-nourished, No Apparent Distress and Alert and Oriented x3 Chest/Lungs: Positive Clear to Auscultation Bilaterally; Negative Rales, Rhonci or Wheezes Heart: Positive RRR GI/: Positive Soft, Nontender and Bowel Sounds Normal Neurological: Positive Cranial Nerves Intact, Alert, Oriented and Other (+generalized weakness ) Vital Signs Vital Signs: Vital Signs: Last 24 Hours 08/24/23 13:00 08/24/23 14:00 08/24/23 19:00 Temperature 98.7 F Temperature Source Temporal Artery Scan Pulse Rate 71 Respiratory Rate 15 Blood Pressure 129/78 Blood Pressure Mean 95 Blood Pressure Location Left Arm Blood Pressure Position Sitting O2 Sat by Pulse Oximetry 96 Oxygen Delivery Method Room Air Telemetry Type Remote Telemetry Remote Telemetry Telemetry Monitoring Continues Continues Telemetry Heart Rate 72 80 EKG FL Interval 0.16 0.14 EKG QRS Interval 0.08 0.08 Telemetry Strip Reading sr NSR 08/24/23 19:53 08/24/23 21:30 08/25/23 05:17 Temperature 98.7 F 97.6 F Temperature Source Temporal Artery Scan Temporal Artery Scan Pulse Rate 74 63 Respiratory Rate 18 Blood Pressure 146/78 H 137/87 Blood Pressure Mean 100 103 Blood Pressure Location Left Arm Left Arm Blood Pressure Position Supine Supine O2 Sat by Pulse Oximetry 94 L 96 Oxygen Delivery Method Room Air Room Air Room Air Telemetry Type Telemetry Monitoring Telemetry Heart Rate EKG FL Interval EKG QRS Interval Telemetry Strip Reading 08/25/23 07:47 Temperature Temperature Source Pulse Rate Respiratory Rate Blood Pressure Blood Pressure Mean Blood Pressure Location Blood Pressure Position O2 Sat by Pulse Oximetry Oxygen Delivery Method Room Air Telemetry Type Telemetry Monitoring Telemetry Heart Rate EKG FL Interval EKG QRS Interval Telemetry Strip Reading Lab Results Lab Results: Lab Results: Last 24 Hours 08/25/23 08/23/23 05:36 15:15 WBC 7.40 RBC 3.44 L Hgb 10.5 L Hct 32.0 L MCV 93.0 MCH 30.5 MCHC 32.8 RDW Coeff of Peg 14.7 Plt Count 251 Immature Gran % (Auto) 0.9 Neut % (Auto) 63.5 Lymph % (Auto) 19.2 [place] % (Auto) 9.5 Eos % (Auto) 6.6 Baso % (Auto) 0.3 Neut # (Auto) 4.7 Lymph # (Auto) 1.4 [place] # (Auto) 0.7 Eos # (Auto) 0.5 Baso # (Auto) 0.0 Immature Gran # (Auto) 0.1 Sodium 139.0 Potassium 3.69 Chloride 107.0 Carbon Dioxide 27.6 Anion Gap 8.09 BUN 49.2 H Creatinine 1.97 H D Estimated GFR (MDRD) 24.00 BUN/Creatinine Ratio 24.97 Glucose 107.4 H Calcium 8.95 Total Bilirubin 0.98 AST 82.2 H D ALT 103.8 H D Alkaline Phosphatase 302.0 H D Total Protein 6.31 Albumin 3.22 L Globulin 3.09 Albumin/Globulin Ratio 1.04 Ur Random Sodium 23 Urine Creatinine 72.6 Additional Comments Additional Comments: I have independently reviewed and interpreted the labs/EKGs/imaging ordered during this hospital stay. I have reviewed outside records that are available in our EMR that pertain to medical stay including imaging/notes/labs from previous visits. Active Medications Active Medications: Medications Generic Name Dose Route Start Last Admin Trade Name Freq PRN Reason Stop Dose Admin Acetaminophen 650 mg 08/23/23 16:10 Acetaminophen 325 Mg Tablet PO Q4H PRN Mild Pain Aspirin 81 mg 08/24/23 08:00 08/25/23 08:35 Aspirin 81 Mg Tablet. PO 81 mg [id number] RADHA Administration Atorvastatin Calcium 40 mg 08/24/23 09:00 08/25/23 08:35 Atorvastatin Calcium 20 Mg Tablet PO 40 mg DAILY RADHA Administration Clopidogrel Bisulfate 75 mg 08/24/23 09:00 08/25/23 08:35 Clopidogrel Bisulfate 75 Mg Tablet PO 75 mg DAILY RADHA Administration Enoxaparin Sodium 30 mg 08/25/23 09:00 08/25/23 08:35 Enoxaparin Sodium 30 Mg/0.3 Ml Syr SUBCUT 30 mg DAILY RADHA Administration Lactated Ringer's 1,000 mls @ 100 mls/hr 08/23/23 16:30 08/25/23 01:08 Lactated Ringers IV 100 mls/hr .Q10H RADHA Administration Memantine 10 mg 08/23/23 21:00 08/25/23 08:35 Memantine Hcl 10 Mg Tablet PO 10 mg BID RADHA Administration Nifedipine 30 mg 08/24/23 09:00 08/25/23 08:35 Nifedipine 30 Mg Tab.Er.24 PO 30 mg DAILY RADHA Administration Ondansetron HCl 4 mg 08/23/23 16:10 Ondansetron Hcl/Pf 4 Mg/2 Ml Sdv IVP Q6H PRN Nausea / Vomiting Pantoprazole Sodium 40 mg 08/24/23 06:30 08/25/23 05:55 Pantoprazole Sodium 40 Mg Tablet. PO 40 mg 0630 RADHA Administration Plan Plan: 1. Acute renal failure in setting of dehydration, diarrhea, and diuretic use - Improving. Cont fluids. Hold lasix, losartan. Fena indicative of prerenal. 2. Diarrhea - Resolved. Cont to monitor. 3. Hypertension - Cont procardia 4. Hyperlipidemia - Cont home meds 5. GERD - Cont home meds 6. CAD - Cont plavix and asa 7. Transaminitis - Improving, cont fluids. US RUQ ordered for AM. DVT Prophylaxis: Lovenox Dispo: Potential dc tomorrow if labs baseline. Review Statement Review Statement: I have personally discussed and reviewed the patient's visit/currently labs/imaging/decision making with Dr. Jansen, my supervising attending. Greater that 50 minutes spent with patient, 50% of the time spent with this patient was devoted to counseling and coordination of care.
[2023-08-26 05:29] LABS: BASOPHILS % (AUTO) 0.4 % (0.0-3.0); EOSINOPHILS # (AUTO) 0.5 K/ul (0.0-0.7); EOSINOPHILS % (AUTO) 5.8 % (0.0-7.0); HEMATOCRIT 31.6 % (37.0-47.0); IMMATURE GRANULOCYTE % (AUTO) 0.5 % (0.0-5.0); LYMPHOCYTES # (AUTO) 1.4 K/uL (0.60-3.4); LYMPHOCYTES % (AUTO) 17.4 (10.0-50.0); MEAN CORPUSCULAR HEMOGLOBIN 29.9 pg (27.0-31.0); MEAN CORPUSCULAR HGB CONC 31.6 (31.8-35.4); MEAN CORPUSCULAR VOLUME 94.6 fl (81.0-99.0); MONOCYTES # (AUTO) 0.9 K/uL (0.4-2.0); MONOCYTES % (AUTO) 10.9 (0-10); NEUTROPHILS # (AUTO) 5.4 K/ul (2.0-6.9); PLATELET COUNT 235 10^3/uL (140-440); RDW COEFFICIENT OF VARIATION 14.7 % (11.6-14.8); RED BLOOD COUNT 3.34 10^6/ul (4.20-5.40); WHITE BLOOD COUNT 8.27 K/ul (4.6-10.2)
[2023-08-26 05:41] LABS: ALANINE AMINOTRANSFERASE 80.8 U/L (0-35); ALBUMIN 3.14 g/dL (3.5-5.0); ALKALINE PHOSPHATASE 247.6 U/L (53-141); ASPARTATE AMINO TRANSFERASE 61.1 U/L (14-36); BLOOD UREA NITROGEN 29.6 mg/dL (7-17); CALCIUM 8.85 mg/dL (8.4-10.2); CARBON DIOXIDE 27.8 mmol/L (22-30.0); CHLORIDE 107.5 mmol/L (98-107); CREATININE 1.31 mg/dL (0.60-1.30); POTASSIUM 3.88 mmol/L (3.5-5.1); SODIUM 138.6 mmol/L (134.5-145); TOTAL PROTEIN 6.13 g/dL (6.3-8.2)
[2023-08-26 06:16] LABS: BILIRUBIN,TOTAL 0.91 mg/dL (0.2-1.3)
--- NOTE | 2023-08-26 10:02 | US ---
EXAM: ULTRASOUND OF THE RIGHT UPPER QUADRANT (LIMITED ABDOMEN) HISTORY: Elevated liver enzymes TECHNIQUE: Sonography of the right upper quadrant was performed. Color Doppler imaging of the portal vein was performed. Images were obtained and stored in a permanent archive. COMPARISON: CT abdomen pelvis from 08/23/2023 and ultrasound from 10/31/2021 FINDINGS: Pancreas: 1.0 x 0.7 x 0.6 cm hypoechoic structure in the pancreatic head. Liver: Normal echogenicity. Normal surface contour. No lesions. - Main portal vein: Normal hepatopetal flow. Biliary: The gallbladder is removed. . . -Common bile duct measures 6.0 mm. Right Kidney: No hydronephrosis. Simple cyst.. Aorta and IVC: Limited by bowel gas. Other: No ascites. IMPRESSION: 1.0 cm hypoechoic structure in the pancreatic head. Recommend follow-up MRI abdomen / MRCP for furth er evaluation. Otherwise, unremarkable right upper quadrant ultrasound status post cholecystectomy. Please see above description and additional findings.
[2023-08-26] MEDS: TYLENOL PO PRN (10:33)
--- NOTE | 2023-08-26 11:13 | DCSUM ---
Admission Diagnosis Admission Diagnosis: 1. Acute renal failure in setting of dehydration, diarrhea, and diuretic use 2. Diarrhea 3. Hypertension 4. Hyperlipidemia 5. GERD 6. CAD 7. Transaminitis Discharge Diagnosis Discharge Diagnosis: 1. Acute renal failure in setting of dehydration, diarrhea, and diuretic use - Improving, near baseline 2. Diarrhea - Resolved 3. Hypertension - Chronic, stable 4. Hyperlipidemia - Chronic, stable 5. GERD - Chronic, stable 6. CAD - Chronic, stable 7. Transaminitis - Improving Hospital Provider Hospital Provider: ROLANDO VALDOVINOS, [facility] [place] Primary Care Physician: ZAKIYA DASILVA Summary of History and Physical Summary of History and Physical: Patient is a 88 year old female with pmhx of hyperlipidemia, hypertension, dementia, gerd, who presented from home for dehydration. She had seen her PCP and had labs done showing worsened Cr. She had some diarrhea for a couple weeks and was continuing her diuretics. However she states her diarrhea has resolved. No n/v, abd pain. She was noted to have a Cr of 4 and BUN of 83, baseline is normal renal function. She is making urine. CT a/p negative for acute findings but did note a distended bladder. Schwartz was placed with good return of urine. In ER she was given fluids and potassium. Admitted to med surg. On my evaluation this morning patient is feeling better, slept well last night. Has no complaints. Understands why she was admitted. Seems indifferent. Hospital Course Subjective: During stay, patient has continued to improved. Received IV fluids throughout course. Held duiretics and losartan. Fena indictive of prerenal. Renal function improved greatly. Schwartz was able to be removed on 08/24. Diarrhea resolved prior to admission. No episodes during stay. Transaminitis noted on labs. Trended down. No pain in abdomen. RUQ US completed and showed 1 cm echogenic structure to head of pancreas with recommendation of Comfort DOWD. Discussed findings with patient and discussed need for GI follow-up. Agreeable to plan and still would like to go home. Encouraged patient to continue hydration with oral fluids and hold diuretics and losartan for 2 more days for renal function to fully recover since she is not all the way to baseline but persistent about discharge. Appearance: Pleasant, No Apparent Distress and Alert HEENT: MMM, Supple and No JVD CVS: No Murmur, No Rubs and No Gallop Abdomen: Soft, Non-Tender and No Distention Respiratory: No Dyspnea Extremities: No Edema Vital Signs: Most Recent Vital Signs Temperature 98.1 F 08/26/23 08:00 Temperature Source Oral 08/26/23 08:00 Temperature Source Infrared 08/23/23 12:59 Pulse Rate 68 08/26/23 08:00 Respiratory Rate 20 08/26/23 08:00 Blood Pressure 156/76 H 08/26/23 08:00 Blood Pressure Mean 102 08/26/23 08:00 Blood Pressure Left Arm 124/72 08/23/23 17:28 Blood Pressure Location Left Arm 08/26/23 08:00 Blood Pressure Position Supine 08/26/23 08:00 O2 Sat by Pulse Oximetry 95 08/26/23 08:00 Oxygen Delivery Method Room Air 08/26/23 08:00 Height 5 ft 2 in 08/23/23 17:28 Weight 165 lb 2 oz 08/23/23 18:13 Telemetry Type Bedside Monitor 08/26/23 07:00 Telemetry Monitoring Continues 08/26/23 07:00 Telemetry Heart Rate 72 08/26/23 07:00 EKG SD Interval 0.16 08/26/23 07:00 EKG QRS Interval 0.07 08/26/23 07:00 Telemetry Strip Reading SR 08/26/23 07:00 Lab Results Last 24 Hours: 08/26/23 05:21 WBC 8.27 RBC 3.34 L Hgb 10.0 L Hct 31.6 L MCV 94.6 MCH 29.9 MCHC 31.6 L RDW Coeff of Peg 14.7 Plt Count 235 Immature Gran % (Auto) 0.5 Neut % (Auto) 65.0 Lymph % (Auto) 17.4 Slope % (Auto) 10.9 H Eos % (Auto) 5.8 Baso % (Auto) 0.4 Neut # (Auto) 5.4 Lymph # (Auto) 1.4 Slope # (Auto) 0.9 Eos # (Auto) 0.5 Baso # (Auto) 0.0 Immature Gran # (Auto) 0.0 Sodium 138.6 Potassium 3.88 Chloride 107.5 H Carbon Dioxide 27.8 Anion Gap 7.18 BUN 29.6 H Creatinine 1.31 H D Estimated GFR (MDRD) 38.00 BUN/Creatinine Ratio 22.59 Glucose 104.0 Calcium 8.85 Total Bilirubin 0.91 AST 61.1 H ALT 80.8 H Alkaline Phosphatase 247.6 H D Total Protein 6.13 L Albumin 3.14 L Globulin 2.99 Albumin/Globulin Ratio 1.05 Discharge Instructions Discharge Planning: Discharge Planning > 40 minutes If patient is discharged with left ventricular systolic dysfunction: NA Discharged with a beta safia? [] If no, why not? [] Discharged with an danica/arb? [] If no, why not? [] DX: SHANIA, DIARRHEA, TRANSAMINITIS, ECHOGENIC STRUCTURE TO PANCREAS RX: NONE REGULAR DIET, INCREASE FLUIDS HOLD LASIX AND LOSARTAN TIL 08/28 FOLLOW-UP WITH PCP AND GI Discharge Medications: Medications at Discharge (Home Meds & RX) atorvastatin 40 mg tablet 40 mg PO DAILY 10/31/21 clonidine HCl 0.1 mg tablet 0.1 mg PO BEDTIME 10/31/21 multivitamin,tx-minerals 1 tab PO DAILY 10/31/21 nifedipine 30 mg tablet,extended release 24 hr (Procardia XL) 30 mg PO DAILY 10/31/21 furosemide 40 mg tablet (Lasix) 40 mg PO DAILY 10/31/22 potassium chloride 10 mEq capsule,extended release 10 meq PO DAILY LAB 10/31/22 aspirin 81 mg tablet,delayed release (Adult Aspirin Regimen) 81 mg PO BID 08/23/23 clopidogrel 75 mg tablet 75 mg PO DAILY 08/23/23 losartan 100 mg tablet 100 mg PO DAILY 08/23/23 memantine 10 mg tablet 10 mg PO BID 08/23/23 pantoprazole 40 mg tablet,delayed release 40 mg PO .QDAC 08/23/23 Discharge Plan Discharge Discharge Orders: Discharge Patient (ONCE); Ordered 08/26/23 Ordered By: SERGIO BAL Activity Restrictions/Additional Instructions: Regular diet Drink plenty of fluids Activity as tolerated Follow-up with Dr. Dasilva on 09/02/23 at 2:15 Follow-up with GI regarding ultrasound. Medications: Hold your lasix (furosemide) and losartan over the next 2 days. Resume on 08/28 Instructions: Acute Kidney Injury (IP) Patient Disposition: HOME WITH FAMILY CARE Prescriptions: Continued potassium chloride 10 mEq capsule, extended release 10 meq PO DAILY LAB furosemide [Lasix] 40 mg tablet 40 mg PO DAILY clopidogrel 75 mg tablet 75 mg PO DAILY pantoprazole 40 mg tablet,delayed release (DR/EC) 40 mg PO .QDAC losartan 100 mg tablet 100 mg PO DAILY memantine 10 mg tablet 10 mg PO BID aspirin [Adult Aspirin Regimen] 81 mg tablet,delayed release (DR/EC) 81 mg PO BID atorvastatin 40 mg Tablet 40 mg PO DAILY clonidine HCl 0.1 mg Tablet 0.1 mg PO BEDTIME nifedipine [Procardia XL] 30 mg Tablet Extended Release 24 Hr 30 mg PO DAILY multivitamin,tx-minerals Tablet 1 tab PO DAILY Did you review [place] [employer] for ALL controlled substances?: No Discussed opioids are addictive and Narcan is available by prescription or from pharmacy.: No Condition: Fair Referrals: ZAKIYA DASILVA MD [Primary Care Provider] - 09/02/23 2:15 pm
[2023-08-26 11:30] VITALS: RESP 18
[2023-08-26 13:34] VITALS: BP 142/76; PULSE 78; TEMP 98.1
== END 2023-08-26 14:55 | disposition home or self-care (01) | DRG 683 ==
LOC: ED 12:39 → SCU 16:37
PROVIDERS: ADMIT Hospitalist; ATTEND Nurse Practitioner Family
DX: E87.6 Hypokalemia; E78.5 Hyperlipidemia, unspecified; R33.9 Retention of urine, unspecified; I25.10 Atherosclerotic heart disease of native coronary artery without angina pectoris; R74.01 Elevation of levels of liver transaminase levels; K86.9 Disease of pancreas, unspecified; K21.9 Gastro-esophageal reflux disease without esophagitis; K57.30 Diverticulosis of large intestine without perforation or abscess without bleeding; I10 Essential (primary) hypertension; K43.6 Other and unspecified ventral hernia with obstruction, without gangrene; N28.1 Cyst of kidney, acquired; N17.9 Acute kidney failure, unspecified; Z90.49 Acquired absence of other specified parts of digestive tract; Z20.822 Contact with and (suspected) exposure to COVID-19; K83.8 Other specified diseases of biliary tract